=== PATIENT | male | born 1965 | race Two or more races ===

== ENCOUNTER 2025-02-01 22:27 | Emergency (ER) | payer MEDICAID, OTHER ==
[~2025-02-01] VITALS: Ht 172.7 cm; Wt 86.9 kg
[2025-02-02 01:05] VITALS: BP 139/92; PULSE 96; RESP 20; TEMP 97.6; O2SAT 97
[2025-02-02] MEDS: HYDROcodone-ACET 5/325MG TAB PO ONE (01:05)
[2025-02-02 03:10] LABS: Urine Protein, UAD 2+ (Negative)
--- NOTE | 2025-02-02 03:34 | ED.PDOC ---
General HPI Comments PT CAME TO THE ER WITH CC OF PENILE PAIN/ INFECTION. PT STATES THAT IT STARTED 18 MONTHS AGO WITH A BUMP ON THE PUBIC REGION WHICH KEPT GETTING BIGGER, NOW HE STATES THAT HIS PENIS IS INFECTED AND IT IS PAINFUL TO PEE. PT IS A&OX4 RR EVEN AND REGULAR NO DISTRESS NOTED AT THIS TIME. 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 02/02/25 Ciprofloxacin Hcl (Ciprofloxacin Hcl) 500 Mg Tab, 1 TAB PO BID for 7 Days, #14 TAB Prov:KAMTIAGO [facility] 02/02/25 Information Source: Patient Mode of Arrival: Ambulatory Past Medical History PAST MEDICAL HISTORY: Denies Surgical History: Denies all surgeries Family History Family History: Reviewed,noncontributory to illness Social History Smoker: Non-Smoker Alcohol: Denies ETOH Use Drugs: Denies Drug Use All Other Systems: Reviewed and Negative Physical Exam General Appearance: No Apparent Distress, Normal HEENT: Pharynx Normal Neck: Full Range of Motion, Non-Tender Respiratory: Lungs Clear, No Respiratory Distress, Normal Breath Sounds Cardiovascular: No Edema, No JVD, No Murmur, No Gallop, Normal Peripheral P ulses, Regular Rate/Rhythm Breast Exam: Deferred Gastrointestinal: No Organomegaly, Non Tender, No Pulsatile Mass, Normal Bowel Sounds, Soft Genitalia: Deferred Pelvic: Deferred Rectal: Deferred Extremities: No calf tenderness, Normal capillary refill, Normal range of motion Musculoskeletal : Apperance: Normal Neurologic: Alert, No Motor Deficits, Normal Affect, Normal Mood, No Sensory Deficits Cerebellar Function: Normal Reflexes: Normal, NOT DONE Skin: Dry, Normal Color, Warm Lymphatic: No Adenopathy Was a procedure done? Was a procedure done?: No Differential Diagnosis Kidney stone (Female): N/A Urinary Problem (Male): Epididymitis, Urethritis, Urinary Retention, UTI X-Ray, Labs, Meds, VS Vital Signs Date Time Temp Pulse Resp B/P (MAP) Pulse Ox O2 Delivery O2 Flow Rate FiO2 02/02/25 01:05 96 20 97 Room Air 02/02/25 01:05 97.6 96 20 139/92 (108) 97 97.6 02/01/25 22:29 97.5 92 18 147/111 97 97.5 Lab Test 02/02/25 00:58 Range/Units Urine Color Light-yellow Yellow Urine Clarity Clear Clear Urine pH 5.5 5.0-9.0 Urine Specific Abbott 1.016 1.001-1.035 Urine Protein 2+ H Negative Urine Ketones Negative Negative Urine Blood Negative Negative /uL Urine Nitrite Negative Negative Urine Bilirubin Negative Negative Urine Urobilinogen Normal Negative mg/dL Urine Leukocyte Esterase Negative Negative /uL Urine RBC <1 0 - 3 /hpf Urine Microscopic WBC 1 0-3 /HPF Urine Squamous Epithelial Cells None seen <5 /hpf Urine Bacteria None seen None Seen /hpf Urine Glucose Normal Normal mg/dL Current Medications Medications (Trade) Dose Ordered Sig/Jolynn Route Start Time Stop Time Status Last Admin Acetaminophen/ Hydrocodone Bitart ([place] 5/325MG Tab) 1 tab ONCE ONCE PO 02/02/25 01:00 02/02/25 01:01 DC 02/02/25 01:05 Time of 1ST Reevaluation: 22:40 Reevaluation 1ST: Unchanged Time of 2ND Reevaluation: 03:54 Reevaluation 2ND: Improved Patient Education/Counseling: Diagnosis, Treatment, Need For Follow Up Family Education/Counseling: No Family Present SEPSIS Sepsis Screen Date sepsis recognized/suspect: Feb 01, 2025 Time Sepsis recognized/suspect: 2233 Recent Procedure: No On Antibiotic Therapy: No Respiratory Rate >20: No Heart Rate >90: Yes Temp<36 C (96.8 F) or >38.3 C: No SBP <90 or MAP <65 mmHG: No New Acute Mental Status Change: No Is the patient on CPAP, BIPAP,: No Vital Signs Date Time Temp Pulse Resp B/P (MAP) Pulse Ox O2 Delivery O2 Flow Rate FiO2 02/02/25 01:05 96 20 97 Room Air 02/02/25 01:05 97.6 96 20 139/92 (108) 97 97.6 02/01/25 22:29 97.5 92 18 147/111 97 97.5 Medications Medications Dose Ordered Sig/Jolynn Route Start Time Stop Time Status Last Admin Dose Admin Acetaminophen/ Hydrocodone Bitart 1 tab ONCE ONCE PO 02/02/25 01:00 02/02/25 01:01 DC 02/02/25 01:05 Departure 1 Departure Time of Disposition: 03:34 Impression: Primary Impression: UTI (urinary tract infection) Qualified Codes: N30.00 - Acute cystitis without hematuria Disposition: 01 HOME / SELF CARE / HOMELESS Condition: Stable e-Prescriptions Ibuprofen (Ibuprofen) 800 Mg Tab 800 MG PO Q8HP PRN for 5 Days, #15 TAB Prov: TIAGO HUMPHREY 02/02/25 Ciprofloxacin Hcl (Ciprofloxacin Hcl) 500 Mg Tab 1 TAB PO BID for 7 Days, #14 TAB Prov: TIAGO HUMPHREY 02/02/25 Discharged With: Self Critical Care Note Critical Care Time?: No Stability Stability form required: No TIAGO HUMPHREY Feb 02, 2025 03:34
[2025-02-02] MEDS ORDERED: IBUP-1456 PO (03:53)
[2025-02-02] MEDS ORDERED: CIPR500T4 PO (03:53)
== END 2025-02-02 03:58 | disposition home or self-care (01) ==
LOC: ER 22:27
DX: N39.0 Urinary tract infection, site not specified (principal); Z79.899 Other long term (current) drug therapy
CPT/HCPCS: 81001

== ENCOUNTER 2025-02-21 17:03 | Inpatient (IN) | payer MEDICAID ==
[~2025-02-21] VITALS: Ht 170.2 cm; Wt 80.0 kg
--- NOTE | 2025-02-21 17:19 | ECG ---
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
--- NOTE | 2025-02-21 18:01 | ED.PDOC ---
GI ASSESSMENT HPI Comments This is a 59 year old male presenting to the ED with chief complaint of inguinal swelling/extremity edema. Patient reports that he has been dealing with a left sided inguinal hernia for the past 2 years, but has gone without treatment despite having increased pain and swelling to the region. Patient relays that he is now starting to experience SOB with associated leg swelling, facial swelling, and nausea. Patient notes he was treated for a UTI at [facility] 2 weeks ago and a week ago in [facility]. Patient denies any vomiting, diarrhea, dysuria, abdominal pain, chest pain, or flank pain. Chief Complaint: Extremity Swelling Time Seen by MD: 17:56 Reviewed Notes: Nurses Notes, Medications, Allergies Allergies: Coded Allergies: Ciprofloxacin (Verified Allergy, Unknown, 02/21/25) Information Source: Patient Mode of Arrival: Ambulatory Timing: Months Duration: Since onset Prehospital treatment: None Quality: Sharp Vomitus: None Stool: Normal Severity: Severe Recent: None Recent Hx of: None Past Medical History PAST MEDICAL HISTORY: UTI'S Past Medical History (Other): Left inguinal hernia Surgical History: Denies all surgeries Family History Family History: Reviewed,noncontributory to illness Social History Smoker: Non-Smoker Alcohol: Occasionally Drugs: Marijuana Lives In: Home Constitutional: denies: chills, diaphoresis, fatigue, fever, malaise, sweats, weakness, others EENTM: reports: others (Facial swelling); denies: blurred vision, double vision, ear bleeding, ear discharge, ear drainage, ear pain, ear ringing, eye pain, eye redness, hearing loss, mouth pain, mouth swelling, nasal discharge, nose bleeding, nose congestion, nose pain, photophobia, tearing, throat pain, throat swelling, voice changes Respiratory: reports: shortness of breath; denies: cough, hemoptysis, orthopnea, SOB at rest, SOB with excertion, stridor, wheezing, others Cardiovascular: reports: edema; denies: chest pain, dizzy spells, diaphoresis, Dyspnea on exertion, irregular heart beat, left arm pain, lightheadedness, palpitations, PND, syncope, others Gastrointestinal: reports: nausea; denies: abdomen distended, abdominal pain, blood streaked bowels, constipated, diarrhea, dysphagia, difficulty swallowing, hematemesis, melena, poor appetite, poor fluid intake, rectal bleeding, rectal pain, vomiting, others Genitourinary: reports: testicle swelling; denies: burning, dysuria, flank pain, frequency, hematuria, incontinence, penile discharge, penile sore, pain, testicle pain, urgency, others Neurological: denies: dizziness, fainting, headache, left sided numbness, left sided weakness, numbness, paresthesia, pre-existing deficit, right sided numbness, right sided weakness, seizure, speech problems, tingling, tremors, weakness, others Musculoskeletal: denies: back pain, gout, joint pain, joint swelling, muscle pain, muscle stiffness, neck pain, others Integumetry: denies: bruises, change in color, change in hair/nails, dryness, laceration, lesions, lumps, rash, wounds, others Allergic/Immunocompromised: denies: Difficulty Healing, Frequent Infections, Hives, Itching, others Hematologic/Lymphatic: denies: anemia, blood clots, easy bleeding, easy bruising, swollen glands, others Endocrine: denies: excessive hunger, excessive sweating, excessive thirst, excessive urination, flushing, intolerance to cold, intolerance to heat, unexplained weight gain, unexplained weight loss, others Psychiatric: denies: anxiety, bipolar disorder, depression, hopeless, panic disorder, schizophrenia, sleepless, suicidal, others All Other Systems: Reviewed and Negative Physical Exam General Appearance: Moderate Distress, Obese HEENT: Normal ENT Inspection, Pharynx Normal, TMs Normal Neck: Full Range of Motion, Non-Tender, Normal, Normal Inspection Respiratory: Chest Non-Tender, Lungs Clear, No Accessory Muscle Use, No Respiratory Distress, Normal Breath Sounds Cardiovascular: No Edema, No JVD, No Murmur, No Gallop, Normal Peripheral Pulses, Regular Rate/Rhythm Breast Exam: Deferred Gastrointestinal: Distended, No Pulsatile Mass, Normal Bowel Sounds, Tenderness Genitalia: Other (Significant scrotal swelling with some tenderness bilaterally) Pelvic: Deferred Rectal: Deferred Extremities: No calf tenderness, Normal capillary refill, No pedal edema Musculoskeletal : Apperance: Normal Neurologic: Alert, management intern II-XII nml as Tested, Motor Weakness, Normal Affect, Normal Mood, No Sensory Deficits Cerebellar Function: Normal Reflexes: Normal Skin: Dry, Normal Color, Warm Lymphatic: No Adenopathy EKG EKG : Pulse Rate (adult): 102 [place]: Normal Cardiac Rhythm: ST Block: RBBB Hypertrophy: LAE ST: Normal Was a procedure done? Was a procedure done?: No GI differential Dx Differential Diagnosis: Electrolyte Imbalance, Other (Intractable abdominal enrique n, incarcerated hernia, strangulated hernia is again works him) X-Ray, Labs, Meds, VS Vital Signs Date Time Temp Pulse Resp B/P (MAP) Pulse Ox O2 Delivery O2 Flow Rate FiO2 02/21/25 19:10 75 18 97 Room Air* 0 21 02/21/25 19:10 98.0 75 18 115/57 (76) 98 98.0 02/21/25 19:04 75 16 115/57 02/21/25 18:01 102 02/21/25 17:13 102 02/21/25 17:08 103 18 162/125 (137) 02/21/25 17:06 98.3 103 18 150/121 98 98.3 Lab Test 02/21/25 18:07 Range/Units White Blood Count 6.1 4.4-10.8 10^3/uL Red Blood Count 4.34 L 4.5-5.90 10^6/uL Hemoglobin 13.2 L 13.5-17.5 g/dL Hematocrit 40.5 L 41.0-53.0 % Mean Corpuscular Volume 93.4 80.0-100.0 fL Mean Corpuscular Hemoglobin 30.5 28.0-32.0 pg Mean Corpuscular Hemoglobin Concent 32.6 32.0-36.0 g/dL Red Cell Distribution Width 16.0 H 11.8-14.3 % Platelet Count 184 140-450 10^3/uL Mean Platelet Volume 9.3 6.9-10.8 fL Neutrophils (%) (Auto) 66.1 37.0-80.0 % Lymphocytes (%) (Auto) 17.5 10.0-50.0 % Monocytes (%) (Auto) 14.1 H 0.0-12.0 % Eosinophils (%) (Auto) 1.2 0.0-7.0 % Basophils (%) (Auto) 1.1 0.0-2.0 % Neutrophils # (Auto) 4.0 1.6-8.6 10 ^3/uL Lymphocytes # (Auto) 1.1 0.4-5.4 10 ^3/uL Monocytes # (Auto) 0.9 0-1.3 10 ^3/uL Eosinophils # (Auto) 0.1 0-0.8 10 ^3/uL Basophils # (Auto) 0.1 0-0.2 10 ^3/uL Nucleated Red Blood Cells 0.4 % Prothrombin Time 12.6 H 9.3-11.8 sec Prothrombin Time INR 1.21 H 0.9-1.15 Activated Partial Thromboplast Time 24.8 24.5-34.5 SEC Sodium Level 143 136-145 mmol/L Potassium Level 3.9 3.5-5.1 mmol/L Chloride Level 108 H 98-107 mmol/L Carbon Dioxide Level 25 20-31 mmol/L Anion Gap 10 5-15 Blood Urea Nitrogen 25 H 9-23 mg/dL Creatinine 1.37 H 0.700-1.30 mg/dL Glomerular Filtration Rate Calc 60 >90 mL/min BUN/Creatinine Ratio 18.2 10.0-20.0 Serum Glucose 82 74-106 mg/dL Lactic Acid Level 1.9 0.4-2.0 mmol/L Calcium Level 8.7 8.7-10.4 mg/dL Current Medications Medications (Trade) Dose Ordered Sig/Jolynn Route Start Time Stop Time Status Last Admin Ondansetron HCl (Zofran) 4 mg ONCE ONCE IV 02/21/25 18:00 02/21/25 18:01 DC 02/21/25 19:03 Hydromorphone HCl (Dilaudid Injection) 0.5 mg ONCE ONCE IV 02/21/25 18:00 02/21/25 18:01 DC 02/21/25 19:04 IV Hep-Lock was established The patient was given Dilaudid 0.5 mg IV push for pain The patient was given Zofran 4 mg IV push The patient's chemistry panel shows a BUN of 25 and a creatinine of 1.37 The patient is being signed out to Dr. Alfonso Time of 1ST Reevaluation: 20:01 Reevaluation 1ST: Unchanged Patient Education/Counseling: Diagnosis, Treatment, Prognosis Family Education/Counseling: No Family Present SEPSIS Sepsis Screen Date sepsis recognized/suspect: Feb 21, 2025 Time Sepsis recognized/suspect: 1706 Recent Procedure: No On Antibiotic Therapy: No Respiratory Rate >20: No Heart Rate >90: Yes Temp<36 C (96.8 F) or >38.3 C: No SBP <90 or MAP <65 mmHG: No New Acute Mental Status Change: No Is the patient on CPAP, BIPAP,: No Physician Orders Urinalysis (02/21/25 17:53) Ct Ab Pel With Iv Con Only (02/21/25 17:53) Heplock Iv (02/21/25 17:53) Blood Culture (02/21/25 17:53) Parimutuel Cashier (02/21/25 17:53) Blood Pressure (02/21/25 17:53) Pulse Oximetry (02/21/25 17:53) Iohexol (Omnipaque) (02/21/25 19:32) Vital Signs Date Time Temp Pulse Resp B/P (MAP) Pulse Ox O2 Delivery O2 Flow Rate FiO2 02/21/25 19:10 75 18 97 Room Air* 0 21 02/21/25 19:10 98.0 75 18 115/57 (76) 98 98.0 02/21/25 19:04 75 16 115/57 02/21/25 18:01 102 02/21/25 17:13 102 02/21/25 17:08 103 18 162/125 (137) 02/21/25 17:06 98.3 103 18 150/121 98 98.3 Laboratory Tests Test 02/21/25 18:07 Lactic Acid Level 1.9 mmol/L (0.4-2.0) White Blood Count 6.1 10^3/uL (4.4-10.8) Medications Medications Dose Ordered Sig/Jolynn Route Start Time Stop Time Status Last Admin Dose Admin Hydromorphone HCl 0.5 mg ONCE ONCE IV 02/21/25 18:00 02/21/25 18:01 DC 02/21/25 19:04 Ondansetron HCl 4 mg ONCE ONCE IV 02/21/25 18:00 02/21/25 18:01 DC 02/21/25 19:03 Departure 1 Departure Time of Disposition: 20:00 Impression: Primary Impression: Intractable abdominal pain Disposition: 30 STILL A PATIENT Condition: Fair Critical Care Note Critical Care Time?: No Stability Stability form required: No Heart Score Heart Score: Heart Score Response (Comments) Value History N/A 0 EKG N/A 0 Age N/A 0 Risk Factors N/A 0 Troponin N/A 0 Total 0 I personally scribed for TANYA,LUIS M B MD ([email or web address]) on 02/21/25 at 18:01. Electronically submitted by Thomas Cavazos ([email or web address]). LUIS M MARTÍNEZ MD Feb 21, 2025 18:01
[2025-02-21 18:44] LABS: Hematocrit 40.5 % (41.0-53.0); Hemoglobin 13.2 g/dL (13.5-17.5); Mean Corpuscular Hemoglobin 30.5 pg (28.0-32.0); Mean Corpuscular Volume 93.4 fL (80.0-100.0); Nucleated Red Blood Cells % 0.4 %
[2025-02-21 18:51] LABS: Potassium 3.9 mmol/L (3.5-5.1); Sodium 143 mmol/L (136-145)
[2025-02-21 18:52] LABS: Anion Gap 10 (5-15); Carbon Dioxide 25 mmol/L (20-31)
[2025-02-21 18:57] LABS: BUN/Creatinine Ratio 18.2 (10.0-20.0); Glucose 82 mg/dL (74-106); INR 1.21 (0.9-1.15); Partial Thromboplastin Time 24.8 SEC (24.5-34.5); Prothrombin Time 12.6 sec (9.3-11.8)
[2025-02-21 18:59] LABS: Blood Urea Nitrogen 25 mg/dL (9-23); Calcium 8.7 mg/dL (8.7-10.4); Chloride 108 mmol/L (98-107)
[2025-02-21] MEDS: ONDANSETRON HCL 4 MG/2 ML VIAL IV ONE (19:03)
[2025-02-21] MEDS: HYDROmorphone HCL 2 MG/ML VL/or syr IV ONE (19:04)
[2025-02-21 19:10] VITALS: PULSE 75; RESP 18; O2SAT 97
[2025-02-21] MEDS: IOHEXOL 300 MG/ML 100ML BOTTLE IJ ONE (19:32)
--- NOTE | 2025-02-21 20:57 | DVH ---
Exam: CT CT AB PEL WITH IV CON ONLY History: pain Comparison Study: None TECHNIQUE: Multidetector CT of the abdomen the pelvis with IV contrast. Axial, coronal and sagittal m ultiplanar reformats were obtained from the axial data set by the technologist. Radiation Dose Information: CT Dose: CTDI volume is 18.74 mGy. Dose-length product is 3.92 mGy*cm FINDINGS: Bibasilar atelectasis with trace right-sided pleural effusion. Heart size is within normal limits. S mall pericardial effusion. Small to moderate volume ascites. No evidence of intraperitoneal free air. Liver, spleen, gallbladder, pancreas and adrenal glands unremarkable. Kidneys and ureters unremarkable. Mild wall thickening of the Urinary bladder which is most likely f rom inadequate distention. Prostate is unremarkable. Mild wall thickening of the distal esophagus. Mild gastric wall thickening. Mild wall Thickening of proximal small bowel loops. The remainder of the small bowel loops unremarkable. Appendix is unremar kable. Small to moderate amount of fecal material within the colon. Large left inguinal hernia contai ronni the colon, ascitic fluid and fat with no evidence of obstruction. Small fat and ascitic fluid containing umbilical hernia. Moderate body wall edema. No evidence of acu te osseous abnormalities. Focus of metallic density adjacent to the left L5 lamina. Old left-sided po sterior rib fracture deformities. No evidence of acute osseous abnormalities. IMPRESSION: Small to moderate volume ascites. Moderate body wall edema. Mild wall thickening of the distal esophagus, stomach and proximal small bowel loops which may be due to inadequate distention with mild esophagitis and gastroenteritis not excluded. Large left inguinal hernia containing the colon, ascitic fluid and fat with no evidence of obstructio n.
[2025-02-21 23:36] LABS: Urine Protein, UAD 1+ (Negative)
--- NOTE | 2025-02-21 23:59 | DVHHPRES ---
History of Present Illness Resident Creating Document: PALMER NASH RESIDENT History of Present Illness Mr. Duncan is a 59 year old male with PMHX of Hypertension, heavy alcohol use, who presents today with chief complaint of inguinal swelling. The patient states he has had this hernia for the last 2 years, however presents today due to significant swelling and pain due to this hernia. He describes this pain as sharp, concentrated in testicular region, nonradiating, 8/10 intensity, without aggravating or relieving factors. He states he is still able to pass gas. Additionally refers bilateral lower extremity swelling since beginning to take ciprofloxacin, however he states it has improved. He denies nausea, vomiting, chest pain, diarrhea, shortness of breath, abdominal pain, fever, and palpitations. He states that although the hernia is always present, currently has been on a course of ciprofloxacin p.o. for a UTI, which has caused generalized swelling and worsening of the swelling in his testicles. Due to persistence of symptoms, the patient sought medical attention in the emergency department. On evaluation in the ED, the patient was afebrile, tachycardic, and hypertensive. Initial labs show normocytic anemia, creatinine 1.37, BUN 25, and UA without significant findings. Abdominal CT shows large left inguinal hernia containing the colon, ascitic fluid and fat without evidence of obstruction. The patient was placed on NPO, started on IV fluids and pain medication. He was admitted for further workup and management. Personal history: Inguinal hernia, hypertension Surgical history: Denies Allergies: Ciprofloxacin, causes face swelling Social: States he smokes 1 joint every day and has done so for 20 years, refers he drinks 1 six pack daily for last 4-5 years, denies tobacco use Review of Systems Review of Systems Constitutional: Denies weight loss, fever and chills. HEENT: Denies changes in vision and hearing. Respiratory: Denies shortness of breath and cough Cardiovascular: Denies chest discomfort or palpitations GI: Denies abdominal distention, abdominal pain, diarrhea : Scrotal swelling and pain, Denies dysuria and urinary frequency. Musculoskeletal: Refers bilateral lower extremity swelling Skin: Denies rash and pruritus. Neurological: denies dizziness headache vision or hearing problems Allergies: Coded Allergies: Ciprofloxacin (Verified Allergy, Unknown, 02/21/25) Exam Vital Signs Vital Signs Date Time Temp Pulse Resp B/P (MAP) Pulse Ox O2 Delivery O2 Flow Rate FiO2 02/21/25 23:12 98.0 94 16 153/120 (131) 97 98.0 02/21/25 19:10 Room Air* 0 21 Exam General: The patient alert and oriented in person place and time. Patient following commands HEENT: Normocephalic, atraumatic, normal reactive pupils, EOM intact, pink conjunctiva, pink moist mucous membrane Respiratory/pulmonary: Bilateral chest expansion, no pain on palpation of chest wall, clear lungs bilaterally, vesicular murmurs present in almost all lung santos, no associated crackles or wheezes. Cardiovascular: Normal RRR, normal S1 and S2, no murmurs Abdomen: Abdomen nondistended, normal bowel sounds, soft, there is no pain to palpation in any of the abdominal quadrants, no palpable masses. : Scrotum is observed to be enlarged, without changes in coloration, and hard to the touch, penis is horizontally deviated, hernia is nonreducible. Extremities: No deformities,Bilateral pitting edema +2 reaching up to lower calf, normal pulses Skin: No rashes or pruritus, there is no sacral edema present at this time. Neurological: Intact cranial nerves with no focal neurologic deficits Completed genital examination with airplane gastank liner assembler (Dr Mcnally) Labs/Xrays Labs Test 02/21/25 21:30 02/21/25 18:07 Range/Units Urine Color Yellow Yellow Urine Clarity Clear Clear Urine pH 5.5 5.0-9.0 Urine Specific [place] > 1.050 H 1.001-1.035 Urine Protein 1+ H Negative Urine Ketones Trace Negative Urine Blood Negative Negative /uL Urine Nitrite Negative Negative Urine Bilirubin Negative Negative Urine Urobilinogen Normal Negative mg/dL Urine Leukocyte Esterase Negative Negative /uL Urine RBC <1 0 - 3 /hpf Urine Microscopic WBC 1 0-3 /HPF Urine Squamous Epithelial Cells Few <5 /hpf Urine Bacteria None seen None Seen /hpf Urine Glucose Normal Normal mg/dL White Blood Count 6.1 4.4-10.8 10^3/uL Red Blood Count 4.34 L 4.5-5.90 10^6/uL Hemoglobin 13.2 L 13.5-17.5 g/dL Hematocrit 40.5 L 41.0-53.0 % Mean Corpuscular Volume 93.4 80.0-100.0 fL Mean Corpuscular Hemoglobin 30.5 28.0-32.0 pg Mean Corpuscular Hemoglobin Concent 32.6 32.0-36.0 g/dL Red Cell Distribution Width 16.0 H 11.8-14.3 % Platelet Count 184 140-450 10^3/uL Mean Platelet Volume 9.3 6.9-10.8 fL Neutrophils (%) (Auto) 66.1 37.0-80.0 % Lymphocytes (%) (Auto) 17.5 10.0-50.0 % Monocytes (%) (Auto) 14.1 H 0.0-12.0 % Eosinophils (%) (Auto) 1.2 0.0-7.0 % Basophils (%) (Auto) 1.1 0.0-2.0 % Neutrophils # (Auto) 4.0 1.6-8.6 10 ^3/uL Lymphocytes # (Auto) 1.1 0.4-5.4 10 ^3/uL Monocytes # (Auto) 0.9 0-1.3 10 ^3/uL Eosinophils # (Auto) 0.1 0-0.8 10 ^3/uL Basophils # (Auto) 0.1 0-0.2 10 ^3/uL Nucleated Red Blood Cells 0.4 % Prothrombin Time 12.6 H 9.3-11.8 sec Prothrombin Time INR 1.21 H 0.9-1.15 Activated Partial Thromboplast Time 24.8 24.5-34.5 SEC Sodium Level 143 136-145 mmol/L Potassium Level 3.9 3.5-5.1 mmol/L Chloride Level 108 H 98-107 mmol/L Carbon Dioxide Level 25 20-31 mmol/L Anion Gap 10 5-15 Blood Urea Nitrogen 25 H 9-23 mg/dL Creatinine 1.37 H 0.700-1.30 mg/dL Glomerular Filtration Rate Calc 60 >90 mL/min BUN/Creatinine Ratio 18.2 10.0-20.0 Serum Glucose 82 74-106 mg/dL Lactic Acid Level 1.9 0.4-2.0 mmol/L Calcium Level 8.7 8.7-10.4 mg/dL SEPSIS Sepsis Screen Date sepsis recognized/suspect: Feb 21, 2025 Time Sepsis recognized/suspect: 1706 Recent Procedure: No On Antibiotic Therapy: No Respiratory Rate >20: No Heart Rate >90: Yes Temp<36 C (96.8 F) or >38.3 C: No SBP <90 or MAP <65 mmHG: No New Acute Mental Status Change: No Is the patient on CPAP, BIPAP,: No Physician Orders Ct Ab Pel With Iv Con Only (02/21/25 17:53) Heplock Iv (02/21/25 17:53) Blood Culture (02/21/25 17:53) Bicycle Mechanic (02/21/25 17:53) Blood Pressure (02/21/25 17:53) Pulse Oximetry (02/21/25 17:53) Iohexol (Omnipaque) (02/21/25 19:32) Vital Signs Date Time Temp Pulse Resp B/P (MAP) Pulse Ox O2 Delivery O2 Flow Rate FiO2 02/21/25 23:12 98.0 94 16 153/120 (131) 97 98.0 02/21/25 19:10 75 18 97 Room Air* 0 21 02/21/25 19:10 98.0 75 18 115/57 (76) 98 98.0 02/21/25 19:04 75 16 115/57 02/21/25 18:01 102 02/21/25 17:13 102 02/21/25 17:08 103 18 162/125 (137) 02/21/25 17:06 98.3 103 18 150/121 98 98.3 Laboratory Tests Test 02/21/25 18:07 Lactic Acid Level 1.9 mmol/L (0.4-2.0) White Blood Count 6.1 10^3/uL (4.4-10.8) Medications Medications Dose Ordered Sig/Jolynn Route Start Time Stop Time Status Last Admin Dose Admin Hydromorphone HCl 0.5 mg ONCE ONCE IV 02/21/25 18:00 02/21/25 18:01 DC 02/21/25 19:04 0.5 MG Ondansetron HCl 4 mg ONCE ONCE IV 02/21/25 18:00 02/21/25 18:01 DC 02/21/25 19:03 4 MG Assessment/Plan Assessment/Plan Assessment and Plan: Incarcerated Left Inguinal Hernia - Abdominal CT: large left inguinal hernia containing the colon, ascitic fluid and fat with no evidence of obstruction -Testicular ultrasound: Left inguinal hernia containing fluid and a bowel loop - General surgery has been consulted - NPO, except for medications pending general surgery eval - Tramadol 50 mg PO q 6 hours - Dilaudid 0.5 mg IV once GIRISH likely due to VMN/hemodynamically mediated - Monitor renal function - Avoid nephrotoxic drugs Hypertensive urgency - Monitor BP - Adequate pain management - Patient states he does not take any medications for his blood pressure Ascites, rule out possible cirrhosis - Abdominal CT: Small to moderate volume ascites - Liver ultrasound pending - CMP pending - Indicated Furosemide 20 mg IV once DVT ruled out - B/L lower extremity venous duplex: no right or left femoral popliteal venous thrombosis - evaluate for possible cardiac causes bilateral swelling, pending echocardiog tristen Marijuana use - I have counseled the patient on the importance of complete marijuana cessation for over 13 minutes Heavy alcohol use Rule out alcohol withdrawal syndrome - I have counseled the patient on the importance of complete alcohol cessation f or over 12 minutes. - He states his last drink was 1 week ago Diet: NPO DVT prophylaxis: SCDs GI prophylaxis: Protonix 40 mg IV daily Case discussed with Dr. Maynard Goals of care discussed with the patient for over 30 minutes. Full Code. Plan discussed with: Patient, Other (Nurses) Date of Service: Feb 21, 2025 Billing Provider: CARMELLA MAYNARD MD Common Visit Codes: 18144-[id number] INP/OBS CARE (HIGH) Secondary Visit Codes: 25984-[id number] CARE PLAN 30 MINUTES PALMER NASH RESIDENT Feb 21, 2025 23:59 JORGE GONSALEZ RESIDENT Feb 22, 2025 05:38
[2025-02-22] MEDS ORDERED: ACETAMINOPHEN 325 MG TAB PO PRN
[2025-02-22] MEDS: ACETAMINOPHEN 325 MG TAB PO ONE (00:30)
[2025-02-22 00:46] LABS: Albumin 3.4 g/dL (3.2-4.8); Bilirubin, Total 1.1 mg/dL (0.2-1.0); Magnesium 1.9 mg/dL (1.6-2.6); Total Protein 5.8 g/dL (5.7-8.2)
[2025-02-22 00:53] LABS: Alanine Aminotransferase 65.0 U/L (7-40); Alkaline Phosphatase 174.0 U/L (46-116)
--- NOTE | 2025-02-22 01:11 | DVH ---
Bilateral lower extremity venous duplex Clinical History: R/o DVT Comparison: None Technique: Duplex Doppler evaluation of the deep venous systems of both lower extremities from the common femora l veins to the popliteal veins including color Doppler and spectral/pulsed waveform analysis was perf ormed. Findings: RIGHT SIDE: The common femoral vein demonstrates appropriate compressibility and waveform variability. There is compressibility/patency of the great saphenous vein at the proximal thigh. The femoral vein demonstrates appropriate compressibility and waveform variability. The deep femoral vein demonstrates appropriate compressibility and waveform variability. The popliteal vein demonstrates appropriate compressibility and waveform variability. There is normal compressibility at the tibioperoneal trunk. Enlarged right inguinal lymph node measures 3.0 cm. LEFT SIDE: The common femoral vein demonstrates appropriate compressibility and waveform variability. There is compressibility/patency of the great saphenous vein at the proximal thigh. The femoral vein demonstrates appropriate compressibility and waveform variability. The deep femoral vein demonstrates appropriate compressibility and waveform variability. The popliteal vein demonstrates appropriate compressibility and waveform variability. There is normal compressibility at the tibioperoneal trunk. Impression: 1. No right or left femoropopliteal venous thrombosis. 2. If clinical concern/symptoms persist or worsen, short-interval follow-up study is suggested. 3. Enlarged right inguinal lymph node measures 3.0 cm.
--- NOTE | 2025-02-22 01:59 | DVH ---
ULTRASOUND OF SCROTUM AND CONTENTS. INDICATION: Inguinal hernia COMPARISON: None TECHNIQUE: Multiple real-time grayscale sonographic and color and duplex Doppler images of the scrotu m and its contents were obtained. FINDINGS: The right testicle measures 3.0 x 2.4 x 2.9 cm. The left testicle measures 3.5 x 2.4 x 2.9 cm. Both testicles demonstrate homogeneous echotexture without evidence of focal lesions. Right and left epididymis appears normal. Subsequent color and duplex Doppler interrogation of the testes demonstrated symmetric normal vascula r flow to both testicles. No focal areas of hyperemia were seen. Small bilateral hydroceles. Left inguinal hernia containing fluid and likely a bowel loop. This was better assessed on recent CT. IMPRESSION: Left inguinal hernia containing fluid and a bowel loop.
[2025-02-22 02:19] LABS: Bilirubin, Direct 0.4 mg/dL (<0.3)
[2025-02-22] MEDS: LISINOPRIL 20 MG TAB PO ONE (03:12)
[2025-02-22] MEDS: PANTOPRAZOLE 40 MG/10 ML VIAL INJ IV ONE (06:01)
[2025-02-22] MEDS: FUROSEMIDE 20 MG/2 ML VIAL IV ONE (06:02)
[2025-02-22 06:03] LABS: Hematocrit 40.2 % (41.0-53.0); Hemoglobin 13.0 g/dL (13.5-17.5); Mean Corpuscular Hemoglobin 30.5 pg (28.0-32.0); Mean Corpuscular Volume 94.2 fL (80.0-100.0); Nucleated Red Blood Cells % 0.6 %
[2025-02-22 06:22] LABS: Albumin 3.5 g/dL (3.2-4.8); Anion Gap 10 (5-15); BUN/Creatinine Ratio 12.2 (10.0-20.0); Blood Urea Nitrogen 18 mg/dL (9-23); Carbon Dioxide 25 mmol/L (20-31); Glucose 88 mg/dL (74-106); Potassium 4.2 mmol/L (3.5-5.1); Sodium 142 mmol/L (136-145); Total Protein 5.9 g/dL (5.7-8.2)
[2025-02-22 06:24] LABS: Alanine Aminotransferase 59 U/L (7-40); Alkaline Phosphatase 142 U/L (46-116); Bilirubin, Total 1.3 mg/dL (0.2-1.0); Calcium 8.7 mg/dL (8.7-10.4); Chloride 107 mmol/L (98-107)
[2025-02-22 07:17] VITALS: BP 120/71; PULSE 96; O2SAT 95
[2025-02-22 08:50] LABS: Cannabinoid Screen, Urine Neg (NEGATIVE); Opiate Scree,Urine Neg (NEGATIVE)
[2025-02-22 08:51] LABS: Barbiturate Scree,Urine Neg (NEGATIVE)
[2025-02-22 08:52] LABS: Amphetamine Screen, Urine Pos (NEGATIVE); Benzodiazephine Screen, Urine Neg (NEGATIVE); Cocaine Screen, Urine Neg (NEGATIVE); Phencyclidine Screen, Urine Neg (NEGATIVE)
--- NOTE | 2025-02-22 08:57 | DVH ---
CLINICAL INFORMATION: Elevated liver function tests. TECHNIQUE: Grayscale sonographic imaging of the right upper quadrant of the abdomen was performed, a ssisted by color Doppler techniques. COMPARISON: None FINDINGS: The gallbladder wall measures 5 mm in thickness, abnormally thickened. No stones are see n.Negative reported sonographic Aguirre's sign. The common bile duct is not visualized. Heterogeneous echogenicity of the liver. Liver measures 16.7 cm in craniocaudal dimension, at the upp er limits of normal. The pancreas is obscured by bowel gas. There is ascites. Main portal vein is patent with normal hepat opetal flow demonstrated. The right kidney measures 10.2 cm. There is no hydronephrosis. Right renal cortical echogenicity a nd cortical thickness are within normal limits. IMPRESSION: 1. Gallbladder wall thickening with no gallstones visualized and negative reported sonographic aguirre 's sign. Gallbladder wall thickening may be due to 3rd spacing of fluid in the setting of ascites rat her than acute cholecystitis. Correlate with clinical findings. 2. Heterogeneous echogenicity of the liver with at least small volume ascites. 3. Pancreas and common bile duct were not able to be visualized due to bowel gas.
[2025-02-22 09:00] VITALS: BP 147/110; PULSE 112; RESP 18; TEMP 97.7; O2SAT 97
[2025-02-22] MEDS: PANTOPRAZOLE 40 MG/10 ML VIAL INJ IV SCH (09:40)
[2025-02-22 09:55] LABS: Hepatitis B Surface Antigen Negative (Negative)
[2025-02-22] MEDS: SODIUM CHLORIDE 0.9% 1,000 ML IV SCH (10:01)
[2025-02-22 10:17] LABS: Hepatitis C Antibody Negative (Negative)
--- NOTE | 2025-02-22 10:37 | DVH ---
EXAM: XY CHEST PORTABLE Indication: sob Technique: Single frontal view of the chest was obtained Comparison: None FINDINGS: Lines and Tubes: None Lungs: No focal consolidation. Pleura: No effusion. No pneumothorax. Cardiomediastinal contours: Cardiomegaly. Bones: No acute osseous abnormality. IMPRESSION: No acute cardiopulmonary disease. Cardiomegaly.
[2025-02-22 13:00] VITALS: BP 148/108; PULSE 99; RESP 24; TEMP 97.4; O2SAT 100
[2025-02-22] MEDS ORDERED: HYDROcodone-ACET 5/325MG TAB PO PRN (14:30)
--- NOTE | 2025-02-22 15:39 | DVHPNRES ---
Progress Note Date Seen: Feb 22, 2025 Resident Creating Document: HELLEN FRAZIER RESIDENT Has the PT tested + for MRSA If YES, has PT been informed?: No Medical Necessity Reason Pt with a Central, PICC or Fol: No Subjective Review of Systems Mr. Duncan is a 59 year old male with PMHX of Hypertension, heavy alcohol use, who presents today with chief complaint of left inguinal swelling. Patient reports that he has had this hernia for the past 2 years and had gone to his primary care physician but nothing was done. Patient states that the past 5-6 months the hernia has increased in size and has not been reducible as before. He reports that he has been in pain for a while now but in the last couple of days the pain has increased And yesterday had 3 episodes of vomiting without any blood, which was watery and nausea as well as shortness of breath that increased on lying down. He describes the pain as sharp, concentrated in the testicular region, nonradiating, 8/10 intensity, without aggravating or relieving factors. patient also reports that he had a UTI a few months ago and was given ciprofloxacin for to which he had an allergic reaction he had swelling of his face, body and of his legs. The leg swelling has been there for the past 3 weeks and has not gone away. States that the swelling in his testicles have worsened since then. Personal history: Inguinal hernia, hypertension( reports does not take any blood pressure medication) Surgical history: none family history: Mother and sister have diabetes mellitus type 2 Social: patient lives at home with his sister. States he smokes 1 joint every day and has done so for 20 years, refers he drinks beer- 6-12 pack daily for last 5 years, last drink was 1 week ago, denies tobacco use Allergies: Ciprofloxacin causes generalized body swelling especially in the face and legs home medications: None ROS: 02/22/2025 patient was seen and examined by me at the bedside. Patient reports that he still has pain in his testicular region. He rates the pain as 6/10. We are awaiting on echocardiogram, surgery consult pending. Objective vital signs Vital Sign Date Time Temp Pulse Resp B/P (MAP) Pulse Ox O2 Delivery O2 Flow Rate FiO2 02/22/25 09:00 97.7 112 18 147/110 (122) 97 97.7 02/21/25 19:10 Room Air* 0 21 medications Current Medications Medications Dose Ordered Sig/Jolynn Route Start Time Stop Time Status Last Admin Dose Admin Sodium Chloride 1,000 ml @ 50 mls/hr Q20H IV 02/22/25 00:00 02/22/25 10:01 50 MLS/HR Pantoprazole Sodium 40 mg DAILY IV 02/22/25 10:00 Acetaminophen 325 mg Q4HP PRN PO 02/22/25 00:00 Tramadol HCl 50 mg Q6HP PRN PO 02/22/25 00:30 02/22/25 08:48 50 MG Acetaminophen/ Hydrocodone Bitart 1 tab Q4HPRN PRN PO 02/22/25 14:30 Hydromorphone HCl 0.25 mg Q6HPRN PRN IV 02/22/25 14:30 Ceftriaxone Sodium 50 ml @ 100 mls/hr DAILY@09 IV 02/22/25 14:30 Metronidazole 100 ml @ 100 mls/hr Q8HR IV 02/22/25 14:30 Examination General: The patient alert and oriented in person place and time. Patient following commands HEENT: Normocephalic, atraumatic, normal reactive pupils, EOM intact, pink conjunctiva, pink moist mucous membrane Respiratory/pulmonary: Bilateral chest expansion, no pain on palpation of chest wall, clear lungs bilaterally, vesicular murmurs present in almost all lung santos, no associated crackles or wheezes. Cardiovascular: Normal RRR, normal S1 and S2, no murmurs Abdomen: Abdomen mildly distended, normal bowel sounds, soft, there is no pain to palpation in any of the abdominal quadrants, no palpable masses, presence of right umbilical hernia : Scrotum is observed to be enlarged, without changes in coloration, and hard to the touch, penis is horizontally deviated, hernia is nonreducible. Extremities: No deformities, Bilateral pitting edema +2 reaching up to lower calf, normal pulses Skin: No rashes or pruritus, there is no sacral edema present at this time, p resence of scabs in bilateral knees due to fall. Neurological: Intact cranial nerves with no focal neurologic deficits laboratory and microbiology Laboratory Tests 02/22/25 05:00 Test 02/22/25 05:00 Range/Units Serum Glucose 88 74-106 mg/dL Labs and/or images reviewed: Labs reviewed by me, Image(s) reviewed by me Problem List/Assessment/Plan Problem List/Assessment/Plan Incarcerated Left Inguinal Hernia - Abdominal CT: large left inguinal hernia containing the colon, ascitic fluid and fat with no evidence of obstruction -Testicular ultrasound: Left inguinal hernia containing fluid and a bowel loop - General surgery has been consulted, pending - NPO, except for medications pending general surgery eval - Tramadol 50 mg PO q 6 hours - Dilaudid 0.5 mg q.6 PRN - [place] 10/325 q.4 - echo, pending GIRISH likely due to VMN/hemodynamically mediated - Monitor renal function - Avoid nephrotoxic drugs - NaCl 0.9% 50 mL/hour Q20H IV Hypertensive urgency - Monitor BP - Adequate pain management- tramadol 50 mg q.6 H PRN for severe pain - Patient states he does not take any medications for his blood pressure Ascites, rule out possible cirrhosis - Abdominal CT: Small to moderate volume ascites - Liver ultrasound shows: Gallbladder wall thickening with no gallstones visualized and negative reported sonographic dhaliwal's sign. Gallbladder wall thickening may be due to 3rd spacing of fluid in the setting of ascites rather than acute cholecystitis; Heterogeneous echogenicity of the liver with at least small volume ascites. -Furosemide 20 mg IV once DVT ruled out - B/L lower extremity venous duplex: no right or left femoral popliteal venous thrombosis - evaluate for possible cardiac causes bilateral swelling, pending echocardiogram Marijuana use Heavy alcohol use To monitor for alcohol withdrawal syndrome - patient counseled regarding cessation marijuana and alcohol for 22 minutes of alcohol and the possibility of it causing the ascites to increase if he continues to drink alcohol - He states his last drink was 1 week ago Diet: NPO DVT prophylaxis: SCDs GI prophylaxis: Protonix 40 mg IV daily Goals of care discussed with the patient for 20 minutes: Full code status Case discussed with Dr. Christiansen, patient and nurse. Plan discussed with: Patient, Other (rn) Date of Service: Feb 22, 2025 Billing Provider: MAUDE CHRISTIANSEN MD Common Visit Codes: 82108-[id number] INP/OBS CARE(HIGH) Secondary Visit Codes: [id number] CHNG SMOKING >10MIN (22 minutes for alcohol and marijuana use cessation), [id number] CARE PLAN 30 MINUTES (20 minutes) Addendum Addendum Addendum I was physically present for the chavez portions of the service provided to patient by THE RESIDENT. I have reviewed the documentation, discussed the case with resident and agree with the resident's documentation except as noted. Also the patient's clinical case was discussed with the patient's nurse. This medical document was created using an electronic medical record system with computerized dictation system. Although this document has been carefully reviewed, there might still be some phonetic and typographical errors. These areas are purely typographical due to imperfections of the software programs, and do not reflect any compromise in the patient's medical care. Late signature. HELLEN FRAZIER RESIDENT Feb 22, 2025 15:39 MAUDE CHRISTIANSEN MD Feb 25, 2025 10:06
[2025-02-22 17:00] VITALS: BP 113/68; PULSE 68; RESP 20; TEMP 97.5; O2SAT 92
[2025-02-22 20:56] VITALS: BP 121/89; PULSE 82; RESP 20; TEMP 97.3; O2SAT 95
[2025-02-22] MEDS: HYDROmorphone HCL 2 MG/ML VL/or syr IV PRN (21:46)
[2025-02-22 22:21] VITALS: BP 127/102; PULSE 82; RESP 18; TEMP 98.3; O2SAT 97
[2025-02-23 01:06] VITALS: BP 136/100; PULSE 75; RESP 18; TEMP 97.2; O2SAT 97
[2025-02-23 04:48] VITALS: BP 126/106; PULSE 90; RESP 19; TEMP 98.3; O2SAT 97
[2025-02-23 06:49] LABS: Hematocrit 37.9 % (41.0-53.0); Hemoglobin 12.5 g/dL (13.5-17.5); Mean Corpuscular Hemoglobin 30.6 pg (28.0-32.0); Mean Corpuscular Volume 92.8 fL (80.0-100.0); Nucleated Red Blood Cells % 0.3 %
[2025-02-23 06:58] LABS: Anion Gap 10 (5-15); Carbon Dioxide 26 mmol/L (20-31); Potassium 3.9 mmol/L (3.5-5.1); Sodium 144 mmol/L (136-145)
[2025-02-23 07:04] LABS: BUN/Creatinine Ratio 10.6 (10.0-20.0); Blood Urea Nitrogen 15 mg/dL (9-23)
[2025-02-23 07:26] LABS: Calcium 8.1 mg/dL (8.7-10.4); Chloride 108 mmol/L (98-107); Glucose 71 mg/dL (74-106)
[2025-02-23 09:00] VITALS: BP 122/94; PULSE 87; RESP 18; TEMP 98.4; O2SAT 95
--- NOTE | 2025-02-23 10:31 | DVHINCON2 ---
Date of service: Feb 23, 2025 Family History: Diabetes mellitus G8 MOTHER Allergies: Coded Allergies: Ciprofloxacin (Verified Allergy, Unknown, 02/21/25) Home Meds No Active Prescriptions or Reported Meds Current Medications Current Medications Medications (Trade) Dose Ordered Sig/Jolynn Route PRN Reason Start Time Stop Time Status Last Admin Acetaminophen/ Hydrocodone Bitart (Elizabeth 5/325MG Tab) 1 tab Q4HPRN PRN PO MILD PAIN (1-3 PAIN SCALE) 02/22/25 14:30 Hydromorphone HCl (Dilaudid Injection) 0.25 mg Q6HPRN PRN IV MODERATE PAIN (4-6 PAIN SCALE) 02/22/25 14:30 02/23/25 05:57 Ceftriaxone Sodium 50 ml @ 100 mls/hr DAILY@09 IV 02/22/25 14:30 02/23/25 09:26 Metronidazole 100 ml @ 100 mls/hr Q8HR IV 02/22/25 14:30 02/23/25 05:43 Vital Signs Vital Signs Date Time Temp Pulse Resp B/P (MAP) Pulse Ox O2 Delivery O2 Flow Rate FiO2 02/23/25 09:00 98.4 87 18 122/94 (103) 95 98.4 02/23/25 08:00 Room Air* 0 21 Labs/Diagnostic Data Labs Test 02/23/25 05:10 02/22/25 21:30 02/22/25 18:07 02/22/25 05:00 Range/Units White Blood Count 5.0 4.4-10.8 10^3/uL Red Blood Count 4.09 L 4.5-5.90 10^6/uL Hemoglobin 12.5 L 13.5-17.5 g/dL Hematocrit 37.9 L 41.0-53.0 % Mean Corpuscular Volume 92.8 80.0-100.0 fL Mean Corpuscular Hemoglobin 30.6 28.0-32.0 pg Mean Corpuscular Hemoglobin Concent 33.0 32.0-36.0 g/dL Red Cell Distribution Width 16.0 H 11.8-14.3 % Platelet Count 171 140-450 10^3/uL Mean Platelet Volume 9.2 6.9-10.8 fL Neutrophils (%) (Auto) 51.8 37.0-80.0 % Lymphocytes (%) (Auto) 29.8 10.0-50.0 % Monocytes (%) (Auto) 15.8 H 0.0-12.0 % Eosinophils (%) (Auto) 1.7 0.0-7.0 % Basophils (%) (Auto) 0.9 0.0-2.0 % Neutrophils # (Auto) 2.6 1.6-8.6 10 ^3/uL Lymphocytes # (Auto) 1.5 0.4-5.4 10 ^3/uL Monocytes # (Auto) 0.8 0-1.3 10 ^3/uL Eosinophils # (Auto) 0.1 0-0.8 10 ^3/uL Basophils # (Auto) 0 0-0.2 10 ^3/uL Nucleated Red Blood Cells 0.3 % Sodium Level 144 136-145 mmol/L Potassium Level 3.9 3.5-5.1 mmol/L Chloride Level 108 H 98-107 mmol/L Carbon Dioxide Level 26 20-31 mmol/L Anion Gap 10 5-15 Blood Urea Nitrogen 15 9-23 mg/dL Creatinine 1.42 H 0.700-1.30 mg/dL Glomerular Filtration Rate Calc 58 >90 mL/min BUN/Creatinine Ratio 10.6 10.0-20.0 Serum Glucose 71 L 74-106 mg/dL Calcium Level 8.1 L 8.7-10.4 mg/dL Urine Opiates Screen Neg NEGATIVE Urine Fentanyl Screen Neg NEGATIVE Urine Barbiturates Screen Neg NEGATIVE Urine Phencyclidine Screen Neg NEGATIVE Urine Amphetamines Screen Pos NEGATIVE Urine Benzodiazepines Screen Neg NEGATIVE Urine Cocaine Screen Neg NEGATIVE Urine Cannabinoids Screen Neg NEGATIVE Hemoglobin A1c 6.1 H <5.7 % A1C Phosphorus Level 4.0 2.4-5.1 mg/dL Magnesium Level 1.9 1.6-2.6 mg/dL Total Bilirubin 1.1 H 0.2-1.0 mg/dL Direct Bilirubin 0.4 H <0.3 mg/dL Aspartate Amino Transferase (AST) 58 H 13-40 U/L Alanine Aminotransferase (ALT) 65 H 7-40 U/L Alkaline Phosphatase 174 H 46-116 U/L B-Type Natriuretic Peptide 1183.75 0-100 pg/mL Total Protein 5.8 5.7-8.2 g/dL Albumin 3.4 3.2-4.8 g/dL Vitamin B12 Level 695 211-911 pg/mL Vitamin D 25-Hydroxy 41.1 30.0-100 ng/mL Thyroid Stimulating Hormone (TSH) 10.43 H 0.55-4.78 uIU/mL Plasma/Serum Blood Alcohol < 3.0 <10 mg/dL Hepatitis A IgM Antibody Negative Hepatitis B Surface Antigen Negative Negative Hepatitis B Core IgM Antibody Negative Negative Hepatitis C Antibody Negative Negative Test 02/21/25 21:30 02/21/25 18:07 Range/Units Urine Color Yellow Yellow Urine Clarity Clear Clear Urine pH 5.5 5.0-9.0 Urine Specific [place] > 1.050 H 1.001-1.035 Urine Protein 1+ H Negative Urine Ketones Trace Negative Urine Blood Negative Negative /uL Urine Nitrite Negative Negative Urine Bilirubin Negative Negative Urine Urobilinogen Normal Negative mg/dL Urine Leukocyte Esterase Negative Negative /uL Urine RBC <1 0 - 3 /hpf Urine Microscopic WBC 1 0-3 /HPF Urine Squamous Epithelial Cells Few <5 /hpf Urine Bacteria None seen None Seen /hpf Urine Glucose Normal Normal mg/dL Prothrombin Time 12.6 H 9.3-11.8 sec Prothrombin Time INR 1.21 H 0.9-1.15 Activated Partial Thromboplast Time 24.8 24.5-34.5 SEC Lactic Acid Level 1.9 0.4-2.0 mmol/L Microbiology Date/Time Source Procedure Growth Status 02/21/25 18:07 Blood Blood Culture - Preliminary NO GROWTH AFTER 24 HOURS OF INCUBATION. Resulted Assessment 59 YEAR OLD MALE WITH LEFT INGUINAL HERNIA CONTAINING A LOOP OF BOWEL AND ASCITIC FLUID, ABDOMEN WITH ASCITES, PATIENT ADMITS TO HEAVY ALCOHOL USE, ELEVATED LFT'S. INGUINAL HERNIA IS NOT REDUCIBLE (DUE TO ASCITES) HOWEVER NON TENDER, CT SCAN SHOWS NO EVIDENCE OF INCARCERATION, THIS HERNIA HAS BEEN PRESENT FOR MANY YEARS AND DOES NOT REQUIRE EMERGENCY REPAIR, ADVISED PATIENT TO STOP DRINKING ALCOHOL, HERNIA CAN BE REPAIRED ELECTIVELY Plan discussed with: Patient RUY COOPER MD Feb 23, 2025 10:31
--- NOTE | 2025-02-23 12:11 | DVHPNRES ---
Progress Note Date Seen: Feb 23, 2025 Resident Creating Document: HELLEN FRAZIER RESIDENT Has the PT tested + for MRSA If YES, has PT been informed?: No Medical Necessity Reason Pt with a Central, PICC or Fol: No Subjective Review of Systems Mr. Duncan is a 59 year old male with PMHX of Hypertension, heavy alcohol use, who presents today with chief complaint of left inguinal swelling. Patient reports that he has had this hernia for the past 2 years and had gone to his primary care physician but nothing was done. Patient states that the past 5-6 months the hernia has increased in size and has not been reducible as before. He reports that he has been in pain for a while now but in the last couple of days the pain has increased And yesterday had 3 episodes of vomiting without any blood, which was watery and nausea as well as shortness of breath that increased on lying down. He describes the pain as sharp, concentrated in the testicular region, nonradiating, 8/10 intensity, without aggravating or relieving factors. patient also reports that he had a UTI a few months ago and was given ciprofloxacin for to which he had an allergic reaction he had swelling of his face, body and of his legs. The leg swelling has been there for the past 3 weeks and has not gone away. States that the swelling in his testicles have worsened since then. Personal history: Inguinal hernia, hypertension( reports does not take any blood pressure medication) Surgical history: none family history: Mother and sister have diabetes mellitus type 2 Social: patient lives at home with his sister. States he smokes 1 joint every day and has done so for 20 years, refers he drinks beer- 6-12 pack daily for last 5 years, last drink was 1 week ago, denies tobacco use Allergies: Ciprofloxacin causes generalized body swelling especially in the face and legs home medications: None ROS: 02/22/2025 patient was seen and examined by me at the bedside. Patient reports that he still has pain in his testicular region. He rates the pain as 6/10. We are awaiting on echocardiogram and cardiac clearance before surgery can be done. Surgery on board 02/23/2025: Patient was seen and examined by me at the bedside today. Patient reports that the pain in his scrotal area is 10/10 in intensity. Surgery consult was done who suggested the patient's hernia has been there for a while now and suggested outpatient elective surgery and cessation of alcohol. We are keeping the patient today since he is in a lot of pain and we have consulted high school social science teacher for DME for scrotal Hold which might help the patient's pain. Since surgery is not going to be done we are placing a regular diet. Objective vital signs Vital Sign Date Time Temp Pulse Resp B/P (MAP) Pulse Ox O2 Delivery O2 Flow Rate FiO2 02/23/25 09:00 98.4 87 18 122/94 (103) 95 98.4 02/23/25 08:00 Room Air* 0 21 Total Intake and Output 02/22/25 02/22/25 02/23/25 15:00 23:00 07:00 Intake Total 200 ml Balance 200 ml medications Current Medications Medications Dose Ordered Sig/Jolynn Route Start Time Stop Time Status Last Admin Dose Admin Sodium Chloride 1,000 ml @ 50 mls/hr Q20H IV 02/22/25 00:00 02/22/25 10:01 50 MLS/HR Pantoprazole Sodium 40 mg DAILY IV 02/22/25 10:00 02/23/25 09:26 40 MG Acetaminophen 325 mg Q4HP PRN PO 02/22/25 00:00 Tramadol HCl 50 mg Q6HP PRN PO 02/22/25 00:30 02/22/25 16:08 50 MG Acetaminophen/ Hydrocodone Bitart 1 tab Q4HPRN PRN PO 02/22/25 14:30 Hydromorphone HCl 0.25 mg Q6HPRN PRN IV 02/22/25 14:30 02/23/25 05:57 0.25 MG Ceftriaxone Sodium 50 ml @ 100 mls/hr DAILY@09 IV 02/22/25 14:30 02/23/25 09:26 100 MLS/HR Metronidazole 100 ml @ 100 mls/hr Q8HR IV 02/22/25 14:30 02/23/25 05:43 100 MLS/HR Examination General: The patient alert and oriented in person place and time. Patient following commands HEENT: Normocephalic, atraumatic, normal reactive pupils, EOM intact, pink conjunctiva, pink moist mucous membrane Respiratory/pulmonary: Bilateral chest expansion, no pain on palpation of chest wall, clear lungs bilaterally, vesicular murmurs present in almost all lung santos, no associated crackles or wheezes. Cardiovascular: Normal RRR, normal S1 and S2, no murmurs Abdomen: Abdomen mildly distended, normal bowel sounds, soft, no palpable masses, presence of right umbilical hernia, pain on palpation in suprapubic region : Scrotum is observed to be tender enlarged, without changes in coloration, and hard and tender to the touch, penis is horizontally deviated, hernia is nonreducible, Extremities: No deformities, Bilateral pitting edema +2 reaching up to lower calf, normal pulses Skin: No rashes or pruritus, there is no sacral edema present at this time, p resence of scabs in bilateral knees due to fall. Neurological: Intact cranial nerves with no focal neurologic deficits laboratory and microbiology Laboratory Tests 02/23/25 05:10 Test 02/23/25 05:10 Range/Units Serum Glucose 71 L 74-106 mg/dL Microbiology Date/Time Source Procedure Growth Status 02/21/25 18:07 Blood Blood Culture - Preliminary NO GROWTH AFTER 24 HOURS OF INCUBATION. Resulted Labs and/or images reviewed: Labs reviewed by me, Image(s) reviewed by me Problem List/Assessment/Plan Problem List/Assessment/Plan Incarcerated Left Inguinal Hernia - Abdominal CT: large left inguinal hernia containing the colon, ascitic fluid and fat with no evidence of obstruction -Testicular ultrasound: Left inguinal hernia containing fluid and a bowel loop - Tramadol 50 mg PO q 6 hours - Dilaudid 0.5 mg q.6 PRN - [place] 10/325 q.4 - General surgery has been consulted, they have suggested that the patient can have outpatient elective surgery and cessation of alcohol - manager social work consult done for DME for scrotal Hold to relieve patient's pain GIRISH likely due to VMN/hemodynamically mediated - Monitor renal function - Avoid nephrotoxic drugs - NaCl 0.9% 50 mL/hour Q20H IV Hypertensive urgency - Monitor BP - Adequate pain management- tramadol 50 mg q.6 H PRN for severe pain - Patient states he does not take any medications for his blood pressure Ascites, rule out possible cirrhosis - Abdominal CT: Small to moderate volume ascites - Liver ultrasound shows: Gallbladder wall thickening with no gallstones visualized and negative reported sonographic dhaliwal's sign. Gallbladder wall thickening may be due to 3rd spacing of fluid in the setting of ascites rather than acute cholecystitis; Heterogeneous echogenicity of the liver with at least small volume ascites. -Furosemide 20 mg IV once DVT ruled out - B/L lower extremity venous duplex: no right or left femoral popliteal venous thrombosis - evaluate for possible cardiac causes bilateral swelling, pending echocardiogram Marijuana use Heavy alcohol use Rule out alcohol withdrawal syndrome - patient counseled regarding cessation and the possibility of it causing the ascites to increase - He states his last drink was 1 week ago Diet: Regular diet DVT prophylaxis: SCDs GI prophylaxis: Protonix 40 mg IV daily Goals of care: Full code status Case discussed with Dr. Christiansen, patient and nurse. Plan discussed with: Patient, Other (Lower) My Orders My Orders Orders - HELLEN FRAZIER Procedure Category Date Status Time * Cardiology Consult CONS 02/23/25 Transmitted 10:12 * Fish Roe Technician CONS 02/23/25 Transmitted Consult Date of Service: Feb 23, 2025 Billing Provider: MAUDE CHRISTIANSEN MD Common Visit Codes: [id number] INP/OBS CARE(HIGH) Addendum Addendum Addendum I was physically present for the chavez portions of the service provided to patient by THE RESIDENT. I have reviewed the documentation, discussed the case with resident and agree with the resident's documentation except as noted. Also the patient's clinical case was discussed with the patient's nurse. This medical document was created using an electronic medical record system with computerized dictation system. Although this document has been carefully reviewed, there might still be some phonetic and typographical errors. These areas are purely typographical due to imperfections of the software programs, and do not reflect any compromise in the patient's medical care. Late signature. HELLEN FRAZIER RESIDENT Feb 23, 2025 12:11 MAUDE CHRISTIANSEN MD Feb 25, 2025 10:40
[2025-02-23 17:00] VITALS: BP 133/104; PULSE 101; RESP 18; TEMP 98.4; O2SAT 100
--- NOTE | 2025-02-23 17:04 | DVHSR ---
APPROVED REPORT EXAM: Two-dimensional and M-mode echocardiogram with Doppler and color Doppler. Blood Pressure: 125/77 mmHg INDICATION Eval EF RISK FACTORS Height: 5' 7", Weight: 176 DIMENSIONS LVDd5.6 (3.8-5.7cm)LA (2D)5.2 (1.9-4.0cm)Aortic Root3.4 (2.0-3.7cm) LVDs5.1 (2.5-4.0cm)LA (MM) (1.9-4.0cm)Aortic Cusp Exc2.0 (1.5-2.0cm) EF (%) 20.0 (55-70%)Rt. Atrium5.8 (1.9-4.0cm)Asc. Aorta cm IVSd1.3 (0.7-1.1cm)RV (D) (1.8-2.4cm) PWd1.3 (0.7-1.1cm) Mitral Valve MitralMitral Stenosis E wave0.80m/sMV Mean GR.mmHg A wave0.40m/sMV Peak GR.mmHg E/A ratio2.02D MVAcm2 Aortic Valve Aortic ValveAortic Stenosis V10.50m/Freda Mean GR.4mmHg V21.20m/Freda Peak GR.7mmHg LVOT Diameter2.2 (1.8-2.4cm)Doppler AVA1.58cm2 Pulmonic Valve V20.50m/s Conclusion Technically good study. Sinus rhythm. Biventricular and biatrial enlargement. Aortic root enlargement. Concentric LVH. Valves appear to be structurally normal without intrinsic defects. Left ventricular function is markedly diminished. EF is approximately 10-15% at best with severe madie bal hypokinesis. [id number] tricuspid regurgitation. Trace pulmonic insufficiency. Moderate tricuspid regurg itation. There is increased echogenicity of the inferior pericardial segment. There is a small pericardial ef fusion. No hemodynamic compromise apparent. No RV collapse. No intracardiac masses thrombi or vegetations discernible
--- NOTE | 2025-02-23 18:54 | DVHINCON2 ---
Date Seen: Feb 23, 2025 Referring Physician Jesús Reason for Consultation Cardiac Clearance History of Present Illness 59-year-old male with PMH for HTN, heavy ETOH use presents to the hospital with inguinal swelling. He states he has history of hernia for the last 2 years. Patient has also been noticing increased shortness of breath over the last 2 months worsening bilateral lower extremity edema and also more abdominal distention than usual. Patient does endorse that he drinks heavily on a daily basis up to 5-6 drinks, also endorses smokes marijuana and intermittent use of amphetamines a couple of times a week. Patient found to have elevated BNP of 1183. Creatinine trending 1.37, CT abdomen and pelvis showing small to moderate volume ascites, moderate body wall edema, large left inguinal hernia containing colon ascitic fluid and fat with no evidence of obstruction. Cardiology consult for preop cardiac assessment. EKG reviewed and shows sinus tachycardia at 102 beats per minute, RBBB. Past Medical History HTN, ETOH, Amphetamine use Past Surgical History Denies pervious cardiac surgeries Family History: Diabetes mellitus G8 MOTHER Social History Endorses use of daily alcohol use, marijuana use, and intermittent amphetamine use couple of times weekly. Allergies: Coded Allergies: Ciprofloxacin (Verified Allergy, Unknown, 02/21/25) Home Meds No Active Prescriptions or Reported Meds Review of Systems Constitutional: No: Fever, Chills, Sweats, Weakness, Malaise, Other Eyes: No: Pain, Vision change, Conjunctivae inflammation, Eyelid inflammation, Other, Redness ENT: No: Ear pain, Ear discharge, Nose pain, Nose discharge, Nose congestion, Mouth pain, Mouth swelling, Throat pain, Throat swelling, Other Respiratory: No: Cough, Dry, Shortness of breath, SOB with exertion, Wheezing, Hemoptysis, Pleuritic Pain, Sputum, Wheezing, Other Cardiovascular: ; No: Chest Pain Palpitations, Orthopnea, Paroxysmal Noc. Dyspnea, Edema, Lt Headedness, Other Gastrointestinal: No: Nausea, Vomiting, Abdominal Pain, Diarrhea, Constipation, Melena, Hematochezia, Other abdominal distention Genitourinary: No Dysuria, No Frequency, No Incontinence, No Hematuria, No Retention, No Other Musculoskeletal: neck pain; No: other, shoulder pain, arm pain, back pain, hand pain, leg pain, foot pain Skin: No: Rash, Lesions, Jaundice, Bruising, Other Neurological: Other (Dizziness, headache.); No: Weakness, Numbness, Incoordination, Change in speech, Confusion, Seizures Vital Signs Vital Signs Date Time Temp Pulse Resp B/P (MAP) Pulse Ox O2 Delivery O2 Flow Rate FiO2 02/23/25 17:00 98.4 101 18 133/104 (114) 100 98.4 02/23/25 08:00 Room Air* 0 21 Physical Exam General appearance: Patient is well-developed, well-nourished, in no acute distress. HEENT: Exam shows: Normocephalic, atraumatic, PERRLA, EOMI Neck: Supple, no bruits Chest: Equal chest excursion bilaterally. Breath sounds normal-no rales or wheezes. Heart: Rhythm: Regular rate; no murmur or gallop Abdomen: Exam shows: Soft, nontender, nondistended Musculoskeletal: No clubbing, no cyanosis, +2-3 lower extremity edema Dermatology: Skin warm, moist. Neurological: Exam shows: Alert and oriented x4, normal speech Available prior records, labs, EKG, rhythm strips reviewed and interpreted Labs/Diagnostic Data Labs Test 02/23/25 05:10 02/22/25 21:30 02/22/25 18:07 02/22/25 05:00 Range/Units White Blood Count 5.0 4.4-10.8 10^3/uL Red Blood Count 4.09 L 4.5-5.90 10^6/uL Hemoglobin 12.5 L 13.5-17.5 g/dL Hematocrit 37.9 L 41.0-53.0 % Mean Corpuscular Volume 92.8 80.0-100.0 fL Mean Corpuscular Hemoglobin 30.6 28.0-32.0 pg Mean Corpuscular Hemoglobin Concent 33.0 32.0-36.0 g/dL Red Cell Distribution Width 16.0 H 11.8-14.3 % Platelet Count 171 140-450 10^3/uL Mean Platelet Volume 9.2 6.9-10.8 fL Neutrophils (%) (Auto) 51.8 37.0-80.0 % Lymphocytes (%) (Auto) 29.8 10.0-50.0 % Monocytes (%) (Auto) 15.8 H 0.0-12.0 % Eosinophils (%) (Auto) 1.7 0.0-7.0 % Basophils (%) (Auto) 0.9 0.0-2.0 % Neutrophils # (Auto) 2.6 1.6-8.6 10 ^3/uL Lymphocytes # (Auto) 1.5 0.4-5.4 10 ^3/uL Monocytes # (Auto) 0.8 0-1.3 10 ^3/uL Eosinophils # (Auto) 0.1 0-0.8 10 ^3/uL Basophils # (Auto) 0 0-0.2 10 ^3/uL Nucleated Red Blood Cells 0.3 % Sodium Level 144 136-145 mmol/L Potassium Level 3.9 3.5-5.1 mmol/L Chloride Level 108 H 98-107 mmol/L Carbon Dioxide Level 26 20-31 mmol/L Anion Gap 10 5-15 Blood Urea Nitrogen 15 9-23 mg/dL Creatinine 1.42 H 0.700-1.30 mg/dL Glomerular Filtration Rate Calc 58 >90 mL/min BUN/Creatinine Ratio 10.6 10.0-20.0 Serum Glucose 71 L 74-106 mg/dL Calcium Level 8.1 L 8.7-10.4 mg/dL Urine Opiates Screen Neg NEGATIVE Urine Fentanyl Screen Neg NEGATIVE Urine Barbiturates Screen Neg NEGATIVE Urine Phencyclidine Screen Neg NEGATIVE Urine Amphetamines Screen Pos NEGATIVE Urine Benzodiazepines Screen Neg NEGATIVE Urine Cocaine Screen Neg NEGATIVE Urine Cannabinoids Screen Neg NEGATIVE Hemoglobin A1c 6.1 H <5.7 % A1C Phosphorus Level 4.0 2.4-5.1 mg/dL Magnesium Level 1.9 1.6-2.6 mg/dL Total Bilirubin 1.1 H 0.2-1.0 mg/dL Direct Bilirubin 0.4 H <0.3 mg/dL Aspartate Amino Transferase (AST) 58 H 13-40 U/L Alanine Aminotransferase (ALT) 65 H 7-40 U/L Alkaline Phosphatase 174 H 46-116 U/L B-Type Natriuretic Peptide 1183.75 0-100 pg/mL Total Protein 5.8 5.7-8.2 g/dL Albumin 3.4 3.2-4.8 g/dL Vitamin B12 Level 695 211-911 pg/mL Vitamin D 25-Hydroxy 41.1 30.0-100 ng/mL Thyroid Stimulating Hormone (TSH) 10.43 H 0.55-4.78 uIU/mL Plasma/Serum Blood Alcohol < 3.0 <10 mg/dL Hepatitis A IgM Antibody Negative Hepatitis B Surface Antigen Negative Negative Hepatitis B Core IgM Antibody Negative Negative Hepatitis C Antibody Negative Negative Test 02/21/25 21:30 02/21/25 18:07 Range/Units Urine Color Yellow Yellow Urine Clarity Clear Clear Urine pH 5.5 5.0-9.0 Urine Specific [place] > 1.050 H 1.001-1.035 Urine Protein 1+ H Negative Urine Ketones Trace Negative Urine Blood Negative Negative /uL Urine Nitrite Negative Negative Urine Bilirubin Negative Negative Urine Urobilinogen Normal Negative mg/dL Urine Leukocyte Esterase Negative Negative /uL Urine RBC <1 0 - 3 /hpf Urine Microscopic WBC 1 0-3 /HPF Urine Squamous Epithelial Cells Few <5 /hpf Urine Bacteria None seen None Seen /hpf Urine Glucose Normal Normal mg/dL Prothrombin Time 12.6 H 9.3-11.8 sec Prothrombin Time INR 1.21 H 0.9-1.15 Activated Partial Thromboplast Time 24.8 24.5-34.5 SEC Lactic Acid Level 1.9 0.4-2.0 mmol/L Microbiology Date/Time Source Procedure Growth Status 02/21/25 18:07 Blood Blood Culture - Preliminary NO GROWTH AFTER 48 HOURS OF INCUBATION. Resulted Assessment * Acute HFrEF - diuresis with Lasix 40 mg IV twice daily. Monitor strict I&Os and kidney function. * Cardiomyopathy - echo with EF 10-15% severe global hypokinesis moderate to severe tricuspid regurgitation, small pericardial effusion. Start on metoprolol 25 mg daily titrate as tolerated, plan at on Harsha/Arb upon DC. Continue monitoring BP with initiation of metoprolol and diuresis. Likely amp hetamine induced. Recommend close Cardiology outpatient follow up. * Pre-op Cardiac Assessment - Patient is requiring inguinal surgery due to hernia . ECG on admission showed sinus tachycardia with RBBB . Shortness of breath with exertion unable to walk up a flight of stairs. Bilateral extremity edema Echo recently showed LV EF 10-15%. Patient is high risk for surgery. * Inguinal hernia - surgery following. * ETOH, marijuana, amphetamine abuse - UDS positive for amphetamines. strongly advised against * Elevated LFT - management per primary team. * GIRISH - monitor with diuresis. Case Discussed with Dr Rollins. Patient high risk for any surgery/procedure given severe cardiomyopathy EF 10-50%. Likely methamphetamine induced. Continue diuresis with Lasix, initiate GDMT as tolerates. Critical care, time spent: 48 minutes This medical document was created using an electronic medical record system with voice recognition software and computerized dictation system. Although this document has been carefully reviewed, there might still be some phonetic and typographical errors. Occasional wrong-word or ``sound-alike substitutions ma y have occurred due to the inherent limitations of voice recognition software. These areas are purely typographical due to imperfections of the software programs and do not reflect any compromise in the patient's medical care. Please read the chart carefully and recognize, using context, where these substitutions have occurred. Thank you for allowing me to participate in the management of this patient. The treatment plan was discussed with and agreed upon by patient/family including requesting consultants and ordering of imaging/procedures. Plan discussed with: Patient NYHA Physical activity limitations: Class4(Severe)discomfort Date of Service: Feb 23, 2025 Billing Provider: CONTRERAS ANTONIO Cardiology Common Codes: [id number] INP/OBS CARE (High), [id number] CARE 30-74 MIN CONTRERAS ANTONIO Feb 23, 2025 18:54
[2025-02-23 20:00] VITALS: PULSE 104
[2025-02-23] MEDS: METOPROLOL SUCCINATE XL 50 MG TAB PO ONE (20:28)
[2025-02-23 21:00] VITALS: BP 146/121; PULSE 90; RESP 18; TEMP 97.8; O2SAT 100
[2025-02-24 01:00] VITALS: BP 124/100; PULSE 83; RESP 19; TEMP 98.1; O2SAT 98
[2025-02-24] MEDS: diphenhdrAMINE HCL 50 MG/1 ML VL IV ONE (02:36)
[2025-02-24] MEDS: methylPREDNISolone SOD SUCC 125 MG/2 ML VL IV ONE (02:37)
[2025-02-24 05:00] VITALS: BP 120/99; PULSE 71; RESP 18; TEMP 98.1; O2SAT 99
[2025-02-24 06:02] LABS: Hematocrit 41.7 % (41.0-53.0); Hemoglobin 13.5 g/dL (13.5-17.5); Mean Corpuscular Hemoglobin 30.9 pg (28.0-32.0); Mean Corpuscular Volume 95.2 fL (80.0-100.0); Nucleated Red Blood Cells % 0.3 %
[2025-02-24 06:25] LABS: Anion Gap 10 (5-15); Carbon Dioxide 22 mmol/L (20-31); Potassium 4.3 mmol/L (3.5-5.1); Sodium 142 mmol/L (136-145)
[2025-02-24 06:28] LABS: Calcium 8.7 mg/dL (8.7-10.4); Chloride 110 mmol/L (98-107)
[2025-02-24 06:31] LABS: BUN/Creatinine Ratio 9.4 (10.0-20.0); Blood Urea Nitrogen 15 mg/dL (9-23); Glucose 94 mg/dL (74-106)
[2025-02-24] MEDS: FUROSEMIDE 40 MG/4 ML VIAL IV SCH (06:32)
[2025-02-24 08:00] VITALS: PULSE 71; PULSE 90
[2025-02-24 09:00] VITALS: BP 136/102; PULSE 89; RESP 18; TEMP 98.2; O2SAT 94
[2025-02-24] MEDS ORDERED: METOPROLOL SUCCINATE XL 50 MG TAB PO SCH (10:00)
--- NOTE | 2025-02-24 12:10 | DVHPN2 ---
Consult Progress Note Subjective Patient reports: No new complaints Review of Systems: GI:Abnormal (Abdominal pain) Objective vital signs Vital Sign Date Time Temp Pulse Resp B/P (MAP) Pulse Ox O2 Delivery O2 Flow Rate FiO2 02/24/25 09:00 98.2 89 18 136/102 (113) 94 98.2 02/24/25 08:00 Room Air* 0 21 Total Intake and Output 02/23/25 02/23/25 02/24/25 15:00 23:00 07:00 Intake Total 150 ml 1750 ml 1200 ml Output Total 900 ml Balance 150 ml 1750 ml 300 ml medications Current Medications Medications Dose Ordered Sig/Jolynn Route Start Time Stop Time Status Last Admin Dose Admin Pantoprazole Sodium 40 mg DAILY IV 02/22/25 10:00 02/24/25 10:36 40 MG Acetaminophen 325 mg Q4HP PRN PO 02/22/25 00:00 Tramadol HCl 50 mg Q6HP PRN PO 02/22/25 00:30 02/22/25 16:08 50 MG Acetaminophen/ Hydrocodone Bitart 1 tab Q4HPRN PRN PO 02/22/25 14:30 Hydromorphone HCl 0.25 mg Q6HPRN PRN IV 02/22/25 14:30 02/23/25 05:57 0.25 MG Ceftriaxone Sodium 50 ml @ 100 mls/hr DAILY@09 IV 02/22/25 14:30 02/24/25 10:35 100 MLS/HR Metronidazole 100 ml @ 100 mls/hr Q8HR IV 02/22/25 14:30 02/24/25 06:32 100 MLS/HR Furosemide 40 mg DAILY PO 02/25/25 10:00 Examination: ABDOMEN:Abnormal (Distended), MSK:Abnormal (+2 edema) laboratory and microbiology Laboratory Tests 02/24/25 05:14 Test 02/24/25 05:14 Range/Units Serum Glucose 94 74-106 mg/dL Problem List/Assessment/Plan Problem List/Assessment/Plan Assessment * Acute HFrEF - diuresis with Lasix 40 mg IV twice daily. Monitor strict I&Os and kidney function. * Cardiomyopathy - echo with EF 10-15% severe global hypokinesis moderate to severe tricuspid regurgitation, small pericardial effusion. Start on metoprolol 50 mg daily titrate as tolerated, plan at on Harsha/Arb upon DC. Continue monitoring BP with initiation of metoprolol and diuresis. Likely amphetamine induced. Recommend close Cardiology outpatient follow up. * Pre-op Cardiac Assessment - Patient is requiring inguinal surgery due to hernia . ECG on admission showed sinus tachycardia with RBBB . Shortness of breath with exertion unable to walk up a flight of stairs. Bilateral extremity edema Echo recently showed LV EF 10-15%. Patient is high risk for surgery. * Inguinal hernia - surgery following. * ETOH, marijuana, amphetamine abuse - UDS positive for amphetamines. strongly advised against * Elevated LFT - management per primary team. * GIRISH - monitor with diuresis. Lasix which to p.o. given worsening creatinine overnight. Case Discussed with Dr Rollins. Patient high risk for any surgery/procedure given severe cardiomyopathy EF 10-50%. Likely methamphetamine induced. Continue diuresis with Lasix, initiate GDMT as tolerates. Patient states had some minor reaction with throat swelling cough and some generalized edema with lisinopril states no reaction with metoprolol. Metoprolol continued close monitoring for any reaction. Critical care, time spent: 40 minutes This medical document was created using an electronic medical record system with voice recognition software and computerized dictation system. Although this document has been carefully reviewed, there might still be some phonetic and typographical errors. Occasional wrong-word or ``sound-alike substitutions may have occurred due to the inherent limitations of voice recognition software. These areas are purely typographical due to imperfections of the software programs and do not reflect any compromise in the patient's medical care. Please read the chart carefully and recognize, using context, where these substitutions have occurred. Thank you for allowing me to participate in the management of this patient. The treatment plan was discussed with and agreed upon by patient/family including requesting consultants and ordering of imaging/procedures. Plan discussed with: Patient Dietary Evaluation Review Comments: 1) Initiate cardiac diet 2) Encourage optimal PO intake 3) Follow-up with cardiology and gastroenterology/hepatology 4) Follow-up with case management social worker r/t polysubstance abuse 5) Continue to monitor I&O, labs, and skin integrity Expected Outcomes/Goals: 1) appetite and labs to improve 2) f/u in 3-5 days Date of Service: Feb 24, 2025 Billing Provider: CONTRERAS ANTONIO [facility] Common Visit Codes: 45058-[id number] INP/OBS CARE(HIGH), 43347-[id number] CARE 30-74 MIN CONTRERAS ANTONIO [facility] Feb 24, 2025 12:10
[2025-02-24] MEDS: METOPROLOL SUCCINATE XL 50 MG TAB PO ONE (12:15)
[2025-02-24] MEDS ORDERED: CEPH250C PO (14:26)
[2025-02-24] MEDS ORDERED: FURO1TAB31 PO (14:26)
[2025-02-24] MEDS ORDERED: METO-289 PO (14:26)
--- NOTE | 2025-02-24 14:32 | DVHDSRES ---
Discharge Summary Date of Admission Resident Creating Document: HELLEN FRAZIER RESIDENT Feb 21, 2025 at 23:57 Date of Discharge: Feb 24, 2025 Admitting Diagnosis Left inguinal pain; worsening Labs/Diagnostic Data: Laboratory Results Test 02/24/25 11:42 02/24/25 05:14 02/22/25 21:30 02/22/25 18:07 White Blood Count 5.9 10^3/uL (4.4-10.8) Red Blood Count 4.38 10^6/uL (4.5-5.90) Hemoglobin 13.5 g/dL (13.5-17.5) Hematocrit 41.7 % (41.0-53.0) Mean Corpuscular Volume 95.2 fL (80.0-100.0) Mean Corpuscular Hemoglobin 30.9 pg (28.0-32.0) Mean Corpuscular Hemoglobin Concent 32.4 g/dL (32.0-36.0) Red Cell Distribution Width 16.4 % (11.8-14.3) Platelet Count 187 10^3/uL (140-450) Mean Platelet Volume 9.1 fL (6.9-10.8) Neutrophils (%) (Auto) 79.2 % (37.0-80.0) Lymphocytes (%) (Auto) 13.8 % (10.0-50.0) Monocytes (%) (Auto) 5.7 % (0.0-12.0) Eosinophils (%) (Auto) 0.7 % (0.0-7.0) Basophils (%) (Auto) 0.6 % (0.0-2.0) Neutrophils # (Auto) 4.7 10 ^3/uL (1.6-8.6) Lymphocytes # (Auto) 0.8 10 ^3/uL (0.4-5.4) Monocytes # (Auto) 0.3 10 ^3/uL (0-1.3) Eosinophils # (Auto) 0 10 ^3/uL (0-0.8) Basophils # (Auto) 0 10 ^3/uL (0-0.2) Nucleated Red Blood Cells 0.3 % Sodium Level 142 mmol/L (136-145) Potassium Level 4.3 mmol/L (3.5-5.1) Chloride Level 110 mmol/L (98-107) Carbon Dioxide Level 22 mmol/L (20-31) Anion Gap 10 (5-15) Blood Urea Nitrogen 15 mg/dL (9-23) Creatinine 1.59 mg/dL (0.700-1.30) Glomerular Filtration Rate Calc 50 mL/min (>90) BUN/Creatinine Ratio 9.4 (10.0-20.0) Serum Glucose 94 mg/dL (74-106) Calcium Level 8.7 mg/dL (8.7-10.4) Urine Opiates Screen Neg (NEGATIVE) Urine Fentanyl Screen Neg (NEGATIVE) Urine Barbiturates Screen Neg (NEGATIVE) Urine Phencyclidine Screen Neg (NEGATIVE) Urine Amphetamines Screen Pos (NEGATIVE) Urine Benzodiazepines Screen Neg (NEGATIVE) Urine Cocaine Screen Neg (NEGATIVE) Urine Cannabinoids Screen Neg (NEGATIVE) Hemoglobin A1c 6.1 % A1C (<5.7) Phosphorus Level 4.0 mg/dL (2.4-5.1) Magnesium Level 1.9 mg/dL (1.6-2.6) Total Bilirubin 1.1 mg/dL (0.2-1.0) Direct Bilirubin 0.4 mg/dL (<0.3) Aspartate Amino Transferase (AST) 58 U/L (13-40) Alanine Aminotransferase (ALT) 65 U/L (7-40) Alkaline Phosphatase 174 U/L (46-116) B-Type Natriuretic Peptide 1183.75 pg/mL (0-100) Total Protein 5.8 g/dL (5.7-8.2) Albumin 3.4 g/dL (3.2-4.8) Vitamin B12 Level 695 pg/mL (211-911) Vitamin D 25-Hydroxy 41.1 ng/mL (30.0-100) Thyroid Stimulating Hormone (TSH) 10.43 uIU/mL (0.55-4.78) Test 02/22/25 05:00 02/21/25 21:30 02/21/25 18:07 Plasma/Serum Blood Alcohol < 3.0 mg/dL (<10) Hepatitis A IgM Antibody Negative Hepatitis B Surface Antigen Negative (Negative) Hepatitis B Core IgM Antibody Negative (Negative) Hepatitis C Antibody Negative (Negative) Urine Color Yellow (Yellow) Urine Clarity Clear (Clear) Urine pH 5.5 (5.0-9.0) Urine Specific [place] > 1.050 (1.001-1.035) Urine Protein 1+ (Negative) Urine Ketones Trace (Negative) Urine Blood Negative /uL (Negative) Urine Nitrite Negative (Negative) Urine Bilirubin Negative (Negative) Urine Urobilinogen Normal mg/dL (Negative) Urine Leukocyte Esterase Negative /uL (Negative) Urine RBC <1 /hpf (0 - 3) Urine Microscopic WBC 1 /HPF (0-3) Urine Squamous Epithelial Cells Few /hpf (<5) Urine Bacteria None seen /hpf (None Seen) Urine Glucose Normal mg/dL (Normal) Prothrombin Time 12.6 sec (9.3-11.8) Prothrombin Time INR 1.21 (0.9-1.15) Activated Partial Thromboplast Time 24.8 SEC (24.5-34.5) Lactic Acid Level 1.9 mmol/L (0.4-2.0) Other Laboratory Tests 02/24/25 05:14 Brief Hx & Hospital Course: Mr. Duncan is a 59 year old male with PMHX of Hypertension, heavy alcohol use, who presents today with chief complaint of left inguinal swelling. Patient reports that he has had this hernia for the past 2 years and had gone to his primary care physician but nothing was done. Patient states that the past 5-6 months the hernia has increased in size and has not been reducible as before. He reports that he has been in pain for a while now but in the last couple of days the pain has increased And yesterday had 3 episodes of vomiting without any blood, which was watery and nausea as well as shortness of breath that increased on lying down. He describes the pain as sharp, concentrated in the testicular region, nonradiating, 8/10 intensity, without aggravating or relieving factors. patient also reports that he had a UTI a few months ago and was given ciprofloxacin for to which he had an allergic reaction he had swelling of his face, body and of his legs. The leg swelling has been there for the past 3 weeks and has not gone away. States that the swelling in his testicles have worsened since then. Workup revealed transaminitis, hemoglobin A1c 6.1, GIRISH with creatinine 1.37. CT scan revealed-Small to moderate volume ascites.Moderate body wall edema. Mild wall thickening of the distal esophagus, stomach and proximal small bowel loops which may be due to inadequate distention with mild esophagitis and gastroenteritis not excluded. Large left inguinal hernia containing the colon, ascitic fluid and fat with no evidence of obstruction. Lower extremity Doppler study negative for DVT. Testicular ultrasound Left inguinal hernia containing fluid and a bowel loop. Single wall ultrasound revealed-Gallbladder wall thickening with no gallstones visualized and negative reported sonographic aguirre's sign. Gallbladder wall thickening may be due to 3rd spacing of fluid in the setting of ascites rather than acute cholecystitis. Correlate with clinical findings. Heterogeneous echogenicity of the liver with at least small volume ascites. Pancreas and common bile duct were not able to be visualized due to bowel gas. CXR no acute cardiopulmonary disease. Echo 2D revealed LVEF 10-15% with severe global hypokinesia, [id number] TR, biventricular and biatrial enlargement, concentric LVH. Small pericardial effusion. Patient was treated conservatively. Patient was seen by surgeon, recommended hernia repair can be done electively. Patient was also seen by Cardiology, recommended to start on metoprolol and Lasix. And gradually GDMT. As per Cardiology patient is high-risk for surgery. Patient is being discharged with metoprolol and Lasix. PATIENT REPORTED HE HAS ALLERGY TO METOPROLOL AND DENIED TO TAKE METOPROLOL, THAT IS WHY METOPROLOL WAS NOT GIVEN Patient's meds were sent to the pharmacy electronically. Patient was hemodynamically stable on discharge. Patient was advised to follow up with the PCP in 2 weeks, at discharge clinic as per schedule with BMP report. Follow up with Cardiology and surgeon as per schedule. Physical examination on the day of discharge: General: The patient alert and oriented in person place and time. Patient following commands HEENT: Normocephalic, atraumatic, normal reactive pupils, EOM intact, pink conjunctiva, pink moist mucous membrane Respiratory/pulmonary: Bilateral chest expansion, no pain on palpation of chest wall, clear lungs bilaterally, vesicular murmurs present in almost all lung santos, no associated crackles or wheezes. Cardiovascular: Normal RRR, normal S1 and S2, no murmurs Abdomen: Abdomen mildly distended, normal bowel sounds, soft, no palpable masses, presence of right umbilical hernia, pain on palpation in suprapubic region : Scrotum is observed to be tender enlarged, without changes in coloration, and hard and tender to the touch, penis is horizontally deviated, hernia is nonreducible, Extremities: No deformities, Bilateral pitting edema +2 reaching up to lower calf, normal pulses Skin: No rashes or pruritus, there is no sacral edema present at this time, presence of scabs in bilateral knees due to fall. Neurological: Intact cranial nerves with no focal neurologic deficits laboratory and microbiology Discussed with Dr. Christiansen Consults/Reason for consult Surgery for left inguinal hernia Operations or Procedures [address] [address] Ph: [phone] DIAGNOSTIC IMAGING Diagnostic Imaging Report : [id number] Signed PATIENT: YASMEEN DUNCAN ACCT: [id number] UNIT: [id number] : 1965 LOC: ER ROOM / BED: / AGE / SEX: 59 / M ADM STATUS: REG ER SERVICE 5603 ORDERING PHYSICIAN: LUIS M MARTÍNEZ MD PROCEDURE(s): ABPLIV - CT AB PEL WITH IV CON ONLY REASON: pain ORDER NUMBER(s): [id number], ACCESSION NUMBER(s): [id number] Exam: CT CT AB PEL WITH IV CON ONLY History: pain Comparison Study: None TECHNIQUE: Multidetector CT of the abdomen the pelvis with IV contrast. Axial, coronal and sagittal multiplanar reformats were obtained from the axial data set by the technologist. Radiation Dose Information: CT Dose: CTDI volume is 18.74 mGy. Dose-length product is 3.92 mGy*cm FINDINGS: Bibasilar atelectasis with trace right-sided pleural effusion. Heart size is within normal limits. Small pericardial effusion. Small to moderate volume ascites. No evidence of intraperitoneal free air. Liver, spleen, gallbladder, pancreas and adrenal glands unremarkable. Kidneys and ureters unremarkable. Mild wall thickening of the Urinary bladder which is most likely from inadequate distention. Prostate is unremarkable. Mild wall thickening of the distal esophagus. Mild gastric wall thickening. Mild wall Thickening of proximal small bowel loops. The remainder of the small bowel loops unremarkable. Appendix is unremarkable. Small to moderate amount of fecal material within the colon. Large left inguinal hernia containing the colon, ascitic fluid and fat with no evidence of obstruction. Small fat and ascitic fluid containing umbilical hernia. Moderate body wall edema. No evidence of acute osseous abnormalities. Focus of metallic density adjacent to the left L5 lamina. Old left-sided posterior rib fracture deformities. No evidence of acute osseous abnormalities. IMPRESSION: Small to moderate volume ascites. Moderate body wall edema. Mild wall thickening of the distal esophagus, stomach and proximal small bowel loops which may be due to inadequate distention with mild esophagitis and gastroenteritis not excluded. Large left inguinal hernia containing the colon, ascitic fluid and fat with no evidence of obstruction. ATED BY: LAURA RIVERA DO DICTATED DATE/TIME: 02/21/252054 SIGNED BY: LAURA RIVERA DO SIGNED DATE/TIME: 02/21/252054 CC: [place] [address] Ph: [phone] DIAGNOSTIC IMAGING Diagnostic Imaging Report : [id number] Signed PATIENT: YASMEEN DUNCAN ACCT: [id number] UNIT: [id number] : 1965 LOC: OVERFLOW ROOM / BED: [address] [place] [address] / AGE / SEX: 59 / M ADM STATUS: ADM IN SERVICE 0000 ORDERING PHYSICIAN: PALMER NASH RESIDENT PROCEDURE(s): BLDVT - BiLat Lower DVT REASON: R/o DVT ORDER NUMBER(s): [id number], ACCESSION NUMBER(s): [id number] Bilateral lower extremity venous duplex Clinical History: R/o DVT Comparison: None Technique: Duplex Doppler evaluation of the deep venous systems of both lower extremities from the common femoral veins to the popliteal veins including color Doppler and spectral/pulsed waveform analysis was performed. Findings: RIGHT SIDE: The common femoral vein demonstrates appropriate compressibility and waveform variability. There is compressibility/patency of the great saphenous vein at the proximal thigh. The femoral vein demonstrates appropriate compressibility and waveform variability. The deep femoral vein demonstrates appropriate compressibility and waveform variability. The popliteal vein demonstrates appropriate compressibility and waveform variability. There is normal compressibility at the tibioperoneal trunk. Enlarged right inguinal lymph node measures 3.0 cm. LEFT SIDE: The common femoral vein demonstrates appropriate compressibility and waveform variability. There is compressibility/patency of the great saphenous vein at the proximal thigh. The femoral vein demonstrates appropriate compressibility and waveform variability. The deep femoral vein demonstrates appropriate compressibility and waveform variability. The popliteal vein demonstrates appropriate compressibility and waveform variability. There is normal compressibility at the tibioperoneal trunk. Impression: 1. No right or left femoropopliteal venous thrombosis. 2. If clinical concern/symptoms persist or worsen, short-interval follow-up study is suggested. 3. Enlarged right inguinal lymph node measures 3.0 cm. ATED BY: LOGAN MCFARLANE MD DICTATED DATE/TIME: 02/22/25107 SIGNED BY: LOGAN MCFARLANE MD SIGNED DATE/TIME: 02/22/25107 CC: [place] [address] Ph: [phone] DIAGNOSTIC IMAGING Diagnostic Imaging Report : [id number] Signed PATIENT: YASMEEN DUNCAN ACCT: [id number] UNIT: [id number] : 1965 LOC: OVERFLOW ROOM / BED: [address] [place] [address] / AGE / SEX: 59 / M ADM STATUS: ADM IN SERVICE 0000 ORDERING PHYSICIAN: PALMER NASH RESIDENT PROCEDURE(s): TESUS - TESTICULAR ULTRASOUND REASON: Inguinal hernia ORDER NUMBER(s): [id number], ACCESSION NUMBER(s): [id number] ULTRASOUND OF SCROTUM AND CONTENTS. INDICATION: Inguinal hernia COMPARISON: None TECHNIQUE: Multiple real-time grayscale sonographic and color and duplex Doppler images of the scrotum and its contents were obtained. FINDINGS: The right testicle measures 3.0 x 2.4 x 2.9 cm. The left testicle measures 3.5 x 2.4 x 2.9 cm. Both testicles demonstrate homogeneous echotexture without evidence of focal lesions. Right and left epididymis appears normal. Subsequent color and duplex Doppler interrogation of the testes demonstrated symmetric normal vascular flow to both testicles. No focal areas of hyperemia were seen. Small bilateral hydroceles. Left inguinal hernia containing fluid and likely a bowel loop. This was better assessed on recent CT. IMPRESSION: Left inguinal hernia containing fluid and a bowel loop. ATED BY: ADIS ROOT MD DICTATED DATE/TIME: 02/22/25155 SIGNED BY: ADIS ROOT MD SIGNED DATE/TIME: 02/22/25 0156 CC: [place] [address] Ph: [phone] DIAGNOSTIC IMAGING Diagnostic Imaging Report : [id number] Signed PATIENT: YASMEEN DUNCAN ACCT: [id number] UNIT: [id number] : 1965 [facility] AGE / SEX: 59 / M ADM STATUS: ADM IN SERVICE 4 ORDERING PHYSICIAN: PALMER NASH RESIDENT PROCEDURE(s): ABDL - ABDOMEN LIMITED REASON: Eval liver ORDER NUMBER(s): [id number], ACCESSION NUMBER(s): [id number] CLINICAL INFORMATION: Elevated liver function tests. TECHNIQUE: Grayscale sonographic imaging of the right upper quadrant of the abdomen was performed, assisted by color Doppler techniques. COMPARISON: None FINDINGS: The gallbladder wall measures 5 mm in thickness, abnormally thickened. No stones are seen.Negative reported sonographic Aguirre's sign. The common bile duct is not visualized. Heterogeneous echogenicity of the liver. Liver measures 16.7 cm in craniocaudal dimension, at the upper limits of normal. The pancreas is obscured by bowel gas. There is ascites. Main portal vein is patent with normal hepatopetal flow demonstrated. The right kidney measures 10.2 cm. There is no hydronephrosis. Right renal cortical echogenicity and cortical thickness are within normal limits. IMPRESSION: 1. Gallbladder wall thickening with no gallstones visualized and negative reported sonographic aguirre's sign. Gallbladder wall thickening may be due to 3rd spacing of fluid in the setting of ascites rather than acute cholecystitis. Correlate with clinical findings. 2. Heterogeneous echogenicity of the liver with at least small volume ascites. 3. Pancreas and common bile duct were not able to be visualized due to bowel gas. ATED BY: CRISTOFER ÁLVAREZ DO DICTATED DATE/TIME: 02/22/25853 SIGNED BY: CRISTOFER ÁLVAREZ DO SIGNED DATE/TIME: 02/22/25853 CC: [address] [address] Ph: [phone] DIAGNOSTIC IMAGING Diagnostic Imaging Report : [id number] Signed PATIENT: YASMEEN DUNCAN ACCT: [id number] UNIT: [id number] : 1965 LOC: OVERFLOW ROOM / BED: 1009ER / A AGE / SEX: 59 / M ADM STATUS: ADM IN SERVICE 0948 ORDERING PHYSICIAN: LISA SCHAFFER PROCEDURE(s): CXRP - CHEST PORTABLE REASON: sob ORDER NUMBER(s): [id number], ACCESSION NUMBER(s): [id number] EXAM: XY CHEST PORTABLE Indication: sob Technique: Single frontal view of the chest was obtained Comparison: None FINDINGS: Lines and Tubes: None Lungs: No focal consolidation. Pleura: No effusion. No pneumothorax. Cardiomediastinal contours: Cardiomegaly. Bones: No acute osseous abnormality. IMPRESSION: No acute cardiopulmonary disease. Cardiomegaly. ATED BY: JEANNIE HORTA MD DICTATED DATE/TIME: 02/22/25 103 SIGNED BY: JEANNIE HORTA MD SIGNED DATE/TIME: 02/22/25 103 CC: Condition at Discharge: Stable Final Diagnosis/Problems List Non reducible left inguinal hernia extending to the scrotum causing left inguinal pain; no surgical intervention at this time HFrEF, LVEF 10-15%, global hypokinesia Cardiomyopathy Mild pericardial effusion Tricuspid regurgitation GIRISH likely due to VMN/hemodynamically mediated Hypertensive urgency Heterogeneous echogenicity of the liver Ascites, DVT ruled out Marijuana use Heavy alcohol use Discharge Disposition: Home Discharge Instruct/Medications Diet: Consistent carbohydrate, Cardiac 2g Na,low cholest Activity: No Restrictions, As Tolerated Follow Up/Referral: Please follow up at discharge clinic in 2 weeks as per schedule with the lab of BMP; the patient was provided with lab request to do the BMP PLEASE FOLLOW UP WITH THE PRIMARY CARE PHYSICIAN IN 2 WEEKS Please follow up with the business process consultant in 2 weeks Please follow up with your surgeon in 2-3 weeks Medications: Lasix 40 mg p.o. daily Keflex as prescribed PATIENT REFUSED TO TAKE METOPROLOL EVEN THE CARDIOLOGY RECOMMENDED THAT Scheduled Cephalexin (Keflex Capsule), 1 CAP PO QID Furosemide (Lasix), 40 MG PO DAILY Discharge Statement: "Patient was advised to return to the ER or call 911 if any headaches, dizziness, shortness of breath, chest pain, abdominal pain, bleeding, fevers, or worsening of medical condition. Patient was counseled about treatment plan, medications, possible side effects, patientverbalized understanding. All questions were answered to the best of my ability. This discharge took greater then 30 minutes in planning, reviewing documentation, counseling the patient, and discussing with other team members." ASSESSMENT ASSESSMENT Assessment Addendum Addendum Addendum I was physically present for the chavez portions of the service provided to patient by THE RESIDENT. I have reviewed the documentation, discussed the case with resident and agree with the resident's documentation except as noted. Also the patient's clinical case was discussed with the patient's nurse. This medical document was created using an electronic medical record system with computerized dictation system. Although this document has been carefully reviewed, there might still be some phonetic and typographical errors. These areas are purely typographical due to imperfections of the software programs, and do not reflect any compromise in the patient's medical care. Late signature. Date of Service: Feb 24, 2025 Billing Provider: MAUDE CHRISTIANSEN MD Common Visit Codes: 32126-HFY/OBS DISCH DAY >30min PAWAN QUIROZ RESIDENT Feb 24, 2025 14:32 MAUDE CHRISTIANSEN MD Feb 25, 2025 10:58
[2025-02-24 15:02] VITALS: BP 120/99; PULSE 109; RESP 18; TEMP 36.8
[2025-02-25] MEDS ORDERED: FUROSEMIDE 40 MG TAB PO SCH (10:00)
[2025-02-25] MEDS ORDERED: METOPROLOL SUCCINATE XL 50 MG TAB PO SCH (10:00)
== END 2025-02-24 15:20 | disposition home or self-care (01) | DRG 194 ==
LOC: ER 17:03 → OVERFLOW 23:57 → WEST WING 02-22 22:24 → TELE-WESTW 02-23 16:38
PROVIDERS: ADMIT Internal Medicine; ATTEND Internal Medicine
DX: I11.0 Hypertensive heart disease with heart failure (principal); N17.0 Acute kidney failure with tubular necrosis; I31.39 Other pericardial effusion (noninflammatory); R18.8 Other ascites; K40.90 Unilateral inguinal hernia, without obstruction or gangrene, not specified as recurrent; I50.21 Acute systolic (congestive) heart failure; I42.9 Cardiomyopathy, unspecified; I16.0 Hypertensive urgency; I45.10 Unspecified right bundle-branch block; F12.90 Cannabis use, unspecified, uncomplicated; F15.10 Other stimulant abuse, uncomplicated; I07.1 Rheumatic tricuspid insufficiency; Z83.3 Family history of diabetes mellitus; Z88.1 Allergy status to other antibiotic agents
CPT/HCPCS: 36415; 71045; 74177; 76705; 76870; 80048; 80053; 80074; 80076; 80307; 80320; 81001; 82306; 82607; 83036; 83605; 83735; 83880; 84100; 84443; 85025; 85610; 85730; 87040; 93005; 93306; 93970; 96374; 96375; G0378; J2405; J2470; J3490

== ENCOUNTER 2025-04-13 12:03 | Emergency (ER) | payer MEDICAID ==
[~2025-04-13] VITALS: Ht 167.6 cm; Wt 90.1 kg
[~2025-04-13 12:03] MED LIST: CEPH250C PO; FURO1TAB31 PO
[2025-04-13 12:14] VITALS: TEMP 97.6; O2SAT 96
--- NOTE | 2025-04-13 13:06 | ED.PDOC ---
GI ASSESSMENT HPI Comments 59 y.o male with PMHx of liver disease, presents to the ED for a chief complaint of abdominal pain associated with distention and SOB. Patient has been out of his Lasix medication. He has been taking ibuprofen for pain managment. Patient states earlier today began to have pain to the umbilicus. He has a known umbilical hernia x2 weeks. He states however he thought it should be seen. He also states that he has been out of his regular medications including Lasix and metoprolol. Patient states he has been more short of breath. Denies any recent cough cold runny nose fevers or chills. Chief Complaint: Abdominal Pain Time Seen by MD: 15:24 Reviewed Notes: Nurses Notes, Medications, Allergies Allergies: Coded Allergies: Ciprofloxacin (Verified Allergy, Unknown, 02/21/25) Home Meds Active Scripts Furosemide (Lasix) 40 Mg Tab, 40 MG PO DAILY for 30 Days, #30 TAB Prov:ISHA CHOUDHARY MD 04/13/25 Metoprolol Succinate (Metoprolol Succinate Er) 50 Mg Tab, 1 TAB PO DAILY, #30 TAB 5 Refills Prov:ISHA CHOUDHARY MD 04/13/25 Cephalexin (KEFLEX CAPSULE) 250 Mg Cp, 1 CAP PO QID for 5 Days, #20 CAP Prov:PAWAN QUIROZ 02/24/25 Furosemide (Lasix) 40 Mg Tab, 40 MG PO DAILY for 30 Days, #30 TAB Prov:PAWAN QUIROZ 02/24/25 Information Source: Patient Mode of Arrival: Ambulatory Timing: Weeks (1) Duration: Since onset Quality: Sharp Vomitus: None Stool: Normal Severity: Moderate Recent: None Recent Hx of: None Modifying Factors: Nothing Associated sign and symptoms: Abdominal Pain Past Medical History PAST MEDICAL HISTORY: UTI'S Surgical History: Denies all surgeries Family History Family History: Reviewed,noncontributory to illness Social History Smoker: Non-Smoker Alcohol: Occasionally Drugs: Marijuana Lives In: Home Constitutional: denies: chills, diaphoresis, fatigue, fever, malaise, sweats, weakness, others EENTM: denies: blurred vision, double vision, ear bleeding, ear discharge, ear drainage, ear pain, ear ringing, eye pain, eye redness, hearing loss, mouth pain, mouth swelling, nasal discharge, nose bleeding, nose congestion, nose pain, photophobia, tearing, throat pain, throat swelling, voice changes, others Respiratory: denies: cough, hemoptysis, orthopnea, SOB at rest, shortness of breath, SOB with excertion, stridor, wheezing, others Cardiovascular: denies: chest pain, dizzy spells, diaphoresis, Dyspnea on exertion, edema, irregular heart beat, left arm pain, lightheadedness, palpitations, PND, syncope, others Gastrointestinal: reports: abdominal pain; denies: abdomen distended, blood streaked bowels, constipated, diarrhea, dysphagia, difficulty swallowing, hematemesis, melena, nausea, poor appetite, poor fluid intake, rectal bleeding, rectal pain, vomiting, others Genitourinary: denies: burning, dysuria, flank pain, frequency, hematuria, incontinence, penile discharge, penile sore, pain, testicle pain, testicle swelling, urgency, others Neurological: denies: dizziness, fainting, headache, left sided numbness, left sided weakness, numbness, paresthesia, pre-existing deficit, right sided numbness, right sided weakness, seizure, speech problems, tingling, tremors, weakness, others Musculoskeletal: denies: back pain, gout, joint pain, joint swelling, muscle pain, muscle stiffness, neck pain, others Integumetry: denies: bruises, change in color, change in hair/nails, dryness, laceration, lesions, lumps, rash, wounds, others Allergic/Immunocompromised: denies: Difficulty Healing, Frequent Infections, Hives, Itching, others Hematologic/Lymphatic: denies: anemia, blood clots, easy bleeding, easy bruising, swollen glands, others Endocrine: denies: excessive hunger, excessive sweating, excessive thirst, excessive urination, flushing, intolerance to cold, intolerance to heat, unexplained weight gain, unexplained weight loss, others Psychiatric: denies: anxiety, bipolar disorder, depression, hopeless, panic disorder, schizophrenia, sleepless, suicidal, others All Other Systems: Reviewed and Negative Physical Exam General Appearance: Mild Distress HEENT: Normal ENT Inspection, Pharynx Normal, TMs Normal Neck: Full Range of Motion, Non-Tender, Normal, Normal Inspection Respiratory: Chest Non-Tender, Lungs Clear, No Accessory Muscle Use, No Respiratory Distress, Normal Breath Sounds Cardiovascular: No Edema, No JVD, No Murmur, No Gallop, Normal Peripheral Pulses, Regular Rate/Rhythm Breast Exam: Deferred Gastrointestinal: Other (umbilical hernia that is easily reducible) Genitalia: Deferred Pelvic: Deferred Rectal: Deferred Extremities: No calf tenderness, Normal capillary refill, Normal inspection, Normal range of motion, Non-tender, No pedal edema Musculoskeletal : Apperance: Normal Neurologic: Alert, No Motor Deficits, Normal Affect, Normal Mood, No Sensory Deficits Cerebellar Function: Normal Reflexes: Normal Skin: Dry, Normal Color, Warm Lymphatic: No Adenopathy Was a procedure done? Was a procedure done?: No GI differential Dx Differential Diagnosis: Esophagitis, Gastroenteritis, Hernia, Inflammatory BD X-Ray, Labs, Meds, VS Vital Signs Date Time Temp Pulse Resp B/P (MAP) Pulse Ox O2 Delivery O2 Flow Rate FiO2 04/13/25 12:14 97.6 68 18 145/96 96 97.6 Lab Test 04/13/25 12:59 Range/Units White Blood Count 5.5 4.4-10.8 10^3/uL Red Blood Count 4.35 L 4.5-5.90 10^6/uL Hemoglobin 13.1 L 13.5-17.5 g/dL Hematocrit 39.8 L 41.0-53.0 % Mean Corpuscular Volume 91.4 80.0-100.0 fL Mean Corpuscular Hemoglobin 30.0 28.0-32.0 pg Mean Corpuscular Hemoglobin Concent 32.8 32.0-36.0 g/dL Red Cell Distribution Width 18.8 H 11.8-14.3 % Platelet Count 207 140-450 10^3/uL Mean Platelet Volume 9.1 6.9-10.8 fL Neutrophils (%) (Auto) 37.0-80.0 % Lymphocytes (%) (Auto) 10.0-50.0 % Monocytes (%) (Auto) 0.0-12.0 % Basophils (%) (Auto) 0.0-2.0 % Neutrophils # (Auto) 1.6-8.6 10 ^3/uL Lymphocytes # (Auto) 0.4-5.4 10 ^3/uL Monocytes # (Auto) 0-1.3 10 ^3/uL Differential Total Cells Counted 100.0 100 Neutrophils % (Manual) 58 37.0-80.0 Band Neutrophils % (Manual) 0 Lymphocytes % (Manual) 26 10.0-50.0 Monocytes % (Manual) 12 0-12 Eosinophils % (Manual) 4 0-7 Basophils % (Manual) 0 0.0-2.0 Metamyelocytes % (manual) 0 Myelocytes % (Manual) 0 Promyelocytes % (Manual) 0 Blast Cells % (Manual) 0 Reactive Lymphocytes 0 Platelet Estimate [place] Large Platelets Few Sodium Level 143 136-145 mmol/L Potassium Level 4.3 3.5-5.1 mmol/L Chloride Level 108 H 98-107 mmol/L Carbon Dioxide Level 24 20-31 mmol/L Anion Gap 11 5-15 Blood Urea Nitrogen 20 9-23 mg/dL Creatinine 1.34 H 0.700-1.30 mg/dL Glomerular Filtration Rate Calc 62 >90 mL/min BUN/Creatinine Ratio 14.9 10.0-20.0 Serum Glucose 70 L 74-106 mg/dL Lactic Acid Level 1.6 0.4-2.0 mmol/L Calcium Level 9.2 8.7-10.4 mg/dL Total Bilirubin 1.4 H 0.2-1.0 mg/dL Aspartate Amino Transferase (AST) 32 13-40 U/L Alanine Aminotransferase (ALT) 28 7-40 U/L Alkaline Phosphatase 139 H 46-116 U/L Total Protein 6.7 5.7-8.2 g/dL Albumin 3.9 3.2-4.8 g/dL Lipase 41 12-53 U/L 59-year-old male presents here with abdominal pain. Patient states earlier today began to have crampy abdominal pain. He has had a known umbilical hernia x2 weeks and thought it was related to that. On my examination his hernia is easily reducible but he does report pain. Blood work has been done with a normal BC. CMP does demonstrate creatinine of 1.34. Elevated bilirubin of 1.4 elevated phos of 139. Patient does endorse having liver disease. At Time he is supposed to be on Lasix and metoprolol but states he has ran out x2 weeks. Requesting a refill which I have given him. I have ordered a CT abdomen and pelvis with IV contrast. CT abdomen pelvis has been done which does demonstrate significant ascites. However abdomen is soft nontender doubt spontaneous bacterial peritonitis. WBC count is within normal limits. At this time I will be discharging the patient home. Advised him to follow up with his PCP in 2-3 days and return to the ER if symptoms worsen or persist. Patient agreeable. Time of 1ST Reevaluation: 15:37 Reevaluation 1ST: Unchanged Patient Education/Counseling: Diagnosis, Treatment, Prognosis Family Education/Counseling: No Family Present SEPSIS Sepsis Screen Date sepsis recognized/suspect: Apr 13, 2025 Time Sepsis recognized/suspect: 8 Recent Procedure: No On Antibiotic Therapy: No Respiratory Rate >20: No Heart Rate >90: No Temp<36 C (96.8 F) or >38.3 C: No SBP <90 or MAP <65 mmHG: No New Acute Mental Status Change: No Is the patient on CPAP, BIPAP,: No Physician Orders Ct Ab Pel With Iv Con Only (04/13/25 12:50) Vital Signs Date Time Temp Pulse Resp B/P (MAP) Pulse Ox O2 Delivery O2 Flow Rate FiO2 04/13/25 12:14 97.6 68 18 145/96 96 97.6 Laboratory Tests Test 04/13/25 12:59 Lactic Acid Level 1.6 mmol/L (0.4-2.0) White Blood Count 5.5 10^3/uL (4.4-10.8) Departure 1 Departure Time of Disposition: 16:17 Impression: Primary Impression: Umbilical hernia Qualified Codes: K42.9 - Umbilical hernia without obstruction or gangrene Additional Impressions: Fluid overload Qualified Codes: E87.70 - Fluid overload, unspecified Abdominal ascites Qualified Codes: K70.31 - Alcoholic cirrhosis of liver with ascites; K72.90 - Hepatic failure, unspecified without coma Disposition: 01 HOME / SELF CARE / HOMELESS Condition: Serious Additional Instructions: Return to the ER if symptoms worsen or persist. If the hernia comes stuck in does not easily go back into its normal place please come back to the ER immediately. e-Prescriptions Furosemide (Lasix) 40 Mg Tab 40 MG PO DAILY for 30 Days, #30 TAB Prov: ISHA CHOUDHARY MD 04/13/25 Metoprolol Succinate (Metoprolol Succinate Er) 50 Mg Tab 1 TAB PO DAILY, #30 TAB 5 Refills Prov: ISHA CHOUDHARY MD 04/13/25 Critical Care Note Critical Care Time?: No Stability Stability form required: No I personally scribed for ISHA CHOUDHARY MD ([email or web address]) on 04/13/25 at 13:06. Electronically submitted by Kayla Huang ([facility]). I personally scribed for ISHA CHOUDHARY MD ([facility]) on 04/13/25 at 15:38. Electronically submitted by Kayla Huang ([facility]). I personally scribed for ISHA CHOUDHARY MD ([facility]) on 04/13/25 at 15:45. Electronically submitted by Kayla Huang ([facility]). ISHA CHOUDHARY MD Apr 13, 2025 13:06
[2025-04-13 13:28] LABS: Hematocrit 39.8 % (41.0-53.0); Hemoglobin 13.1 g/dL (13.5-17.5); Mean Corpuscular Hemoglobin 30.0 pg (28.0-32.0); Mean Corpuscular Volume 91.4 fL (80.0-100.0)
[2025-04-13 13:38] LABS: Alanine Aminotransferase 28 U/L (7-40); Albumin 3.9 g/dL (3.2-4.8); Anion Gap 11 (5-15); BUN/Creatinine Ratio 14.9 (10.0-20.0); Blood Urea Nitrogen 20 mg/dL (9-23); Calcium 9.2 mg/dL (8.7-10.4); Carbon Dioxide 24 mmol/L (20-31); Lipase 41 U/L (12-53); Potassium 4.3 mmol/L (3.5-5.1); Sodium 143 mmol/L (136-145); Total Protein 6.7 g/dL (5.7-8.2)
[2025-04-13 13:52] LABS: Alkaline Phosphatase 139 U/L (46-116); Bilirubin, Total 1.4 mg/dL (0.2-1.0); Chloride 108 mmol/L (98-107); Glucose 70 mg/dL (74-106)
[2025-04-13 14:46] LABS: Total Cells Counted 100.0 (100)
[2025-04-13] MEDS: IOHEXOL 300 MG/ML 100ML BOTTLE IJ ONE (15:00)
[2025-04-13] MEDS ORDERED: FURO1TAB31 PO (15:40)
[2025-04-13] MEDS ORDERED: METO-289 PO (15:40)
--- NOTE | 2025-04-13 15:58 | DVH ---
EXAM: CT CT AB PEL WITH IV CON ONLY HISTORY: ro Incarcerated strangulated hernia TECHNIQUE: Volumetric multidetector CT images of the abdomen and pelvis were obtained after the administration of intravenous contrast. All CT scans at this facility use dose modulation, iterative reconstruction, and/or weight based dosing when appropriate to reduce radiation dose to as low as reasonably achievable. COMPARISON: CT CT AB PEL WITH IV CON ONLY on DOS: 02/21/25 FINDINGS: [LOWER CHEST]: Prior healed left posterior rib fractures. Small radiopaque density of the left hemidiaphragm which may be related to prior injury. [LIVER]: Normal hepatic size without suspicious focal lesion. [GALLBLADDER AND BILIARY TREE]: No cholelithiasis. [SPLEEN]: Unremarkable. [PANCREAS]: Unremarkable. [ADRENAL GLANDS]: Unremarkable [KIDNEYS]: No hydronephrosis. No nephroureterolithiasis. No suspicious focal lesion. [BLADDER]: Minimal circumferential bladder wall thickening. [REPRODUCTIVE ORGANS]: Unremarkable. [BOWEL/MESENTERY]: Fat and bowel containing left inguinal hernia without bowel obstruction. Hernia contains sigmoid colon. Fat and fluid containing umbilical hernia. Stomach is normal. No CT evidence of bowel obstruction. [ASCITES]: Medium volume ascites. [LYMPHADENOPATHY]: No pathologically enlarged lymph nodes by CT size criteria [VASCULATURE]: No aneurysmal dilatation. [ABDOMINAL WALL]: Diffuse body wall edema. [MUSCULOSKELETAL]: No acute fracture or aggressive focal osseous lesion. Multifocal degenerative change of the visualized spine. IMPRESSION: 1. Medium volume ascites. 2. Fat and bowel containing left inguinal hernia without bowel obstruction. 3. Fat and fluid containing umbilical hernia.
[2025-04-13] MEDS: MORPHINE SULFATE 4 MG/ML SYR/VIAL IM ONE (17:56)
[2025-04-13 18:45] VITALS: BP 149/94; PULSE 88; RESP 18
== END 2025-04-13 18:46 | disposition home or self-care (01) ==
LOC: ER 12:03
DX: K42.9 Umbilical hernia without obstruction or gangrene (principal); K70.31 Alcoholic cirrhosis of liver with ascites; E87.70 Fluid overload, unspecified; Z79.899 Other long term (current) drug therapy; Z88.1 Allergy status to other antibiotic agents
CPT/HCPCS: 36415; 74177; 80053; 83605; 83690; 85007; 85027; 96372; 99285; J2270; Q9967

== ENCOUNTER 2025-04-16 11:01 | Inpatient (IN) | payer MEDICAID ==
[~2025-04-16] VITALS: Ht 170.2 cm; Wt 88.0 kg
[~2025-04-16 11:01] MED LIST changes: +METO-289 PO
--- NOTE | 2025-04-16 11:29 | ECG ---
[facility] Test Date: 2025-04-16 Test Time: 11:14:09 Pat Name: YASMEEN LUCIANO Department: ER Room: 0245 Gender: M [employer] Player: GASTON : 1965 Requested By: LONG RIOS Order Number: [id number] Reading MD: Josiah Rollins Measurements Intervals [place] Rate: 81 P: 69 PA: 140 QRS: -134 QRSD: 159 T: -3 QT: 444 QTc: 516 Interpretive Statements Sinus rhythm Right bundle branch block Electronically Signed On 04-18-2025 19:45:31 PST by Josiah Rollins Please click the below link to view image of tracing.
--- NOTE | 2025-04-16 11:50 | ED.PDOC ---
HPI Allergic reaction HPI Comments 59 y/o M, presents to the ED for CC of allergic reaction. Patient states, he recently took Metoprol and Lasix and another unknown OTC medication and then developed facial swelling onset, x1day ago. States he has taken his lasix and metop before, no reaction to them. Also endorses leg swelling. Patient denies shortness of breath, inability to swallow, throat swelling, rash, or pruritus. No other symptoms or modifying factors are present at this time. Chief Complaint: Allergic Reaction Time Seen by MD: 11:20 Reviewed Notes: Nurses Notes, Medications, Allergies Allergies: Coded Allergies: Ciprofloxacin (Verified Allergy, Unknown, 02/21/25) Home Meds Active Scripts Furosemide (Lasix) 40 Mg Tab, 40 MG PO DAILY for 30 Days, #30 TAB Prov:ISHA CHOUDHARY MD 04/13/25 Metoprolol Succinate (Metoprolol Succinate Er) 50 Mg Tab, 1 TAB PO DAILY, #30 TAB 5 Refills Prov:ISHA CHOUDHARY MD 04/13/25 Cephalexin (KEFLEX CAPSULE) 250 Mg Cp, 1 CAP PO QID for 5 Days, #20 CAP Prov:PAWAN QUIROZ RESIDENT 02/24/25 Furosemide (Lasix) 40 Mg Tab, 40 MG PO DAILY for 30 Days, #30 TAB Prov:PAWAN QUIROZ RESIDENT 02/24/25 Information Source: Patient Mode of Arrival: Ambulatory Severity: Moderate Rash: None SOB: None Difficulty swallowing: None Pruritus: None Location: Face Exposed to: Medication Developed: Facial Swelling History of: None Modyifying Factors: None Associated Sign and Symptoms: None Past Medical History PAST MEDICAL HISTORY: UTI'S Surgical History: Denies all surgeries Family History Family History: Reviewed,noncontributory to illness Social History Smoker: Non-Smoker Alcohol: Occasionally Drugs: Marijuana Lives In: Home Constitutional: denies: chills, diaphoresis, fatigue, fever, malaise, sweats, weakness, others EENTM: denies: blurred vision, double vision, ear bleeding, ear discharge, ear drainage, ear pain, ear ringing, eye pain, eye redness, hearing loss, mouth pain, mouth swelling, nasal discharge, nose bleeding, nose congestion, nose pain, photophobia, tearing, throat pain, throat swelling, voice changes, others Respiratory: denies: cough, hemoptysis, orthopnea, SOB at rest, shortness of breath, SOB with excertion, stridor, wheezing, others Cardiovascular: denies: chest pain, dizzy spells, diaphoresis, Dyspnea on exertion, edema, irregular heart beat, left arm pain, lightheadedness, palpitations, PND, syncope, others Gastrointestinal: denies: abdomen distended, abdominal pain, blood streaked bowels, constipated, diarrhea, dysphagia, difficulty swallowing, hematemesis, melena, nausea, poor appetite, poor fluid intake, rectal bleeding, rectal pain, vomiting, others Genitourinary: denies: burning, dysuria, flank pain, frequency, hematuria, incontinence, penile discharge, penile sore, pain, testicle pain, testicle swelling, urgency, others Neurological: denies: dizziness, fainting, headache, left sided numbness, left sided weakness, numbness, paresthesia, pre-existing deficit, right sided numbness, right sided weakness, seizure, speech problems, tingling, tremors, weakness, others Musculoskeletal: denies: back pain, gout, joint pain, joint swelling, muscle pain, muscle stiffness, neck pain, others Integumetry: denies: bruises, change in color, change in hair/nails, dryness, laceration, lesions, lumps, rash, wounds, others Allergic/Immunocompromised: denies: Difficulty Healing, Frequent Infections, Hives, Itching, others Hematologic/Lymphatic: denies: anemia, blood clots, easy bleeding, easy bruising, swollen glands, others Endocrine: denies: excessive hunger, excessive sweating, excessive thirst, excessive urination, flushing, intolerance to cold, intolerance to heat, unexplained weight gain, unexplained weight loss, others Psychiatric: denies: anxiety, bipolar disorder, depression, hopeless, panic disorder, schizophrenia, sleepless, suicidal, others All Other Systems: Reviewed and Negative Physical Exam General Appearance: No Apparent Distress, Normal HEENT: Normal ENT Inspection, Pharynx Normal, Other (bilateral periorbital swelling, no oropharynx swelling) Neck: Full Range of Motion, Non-Tender, Normal, Normal Inspection Respiratory: Chest Non-Tender, Lungs Clear, No Accessory Muscle Use, No Respiratory Distress, Normal Breath Sounds Cardiovascular: No Edema, No Murmur, No Gallop, Normal Peripheral Pulses, Regular Rate/Rhythm Breast Exam: Deferred Gastrointestinal: No Organomegaly, Non Tender, No Pulsatile Mass, Normal Bowel Sounds, Soft Genitalia: Deferred Pelvic: Deferred Rectal: Deferred Extremities: Leg edema (1+), No calf tenderness, Normal capillary refill, Normal inspection, Normal range of motion, Non-tender Musculoskeletal : Apperance: Normal Neurologic: Alert, inside sales engineer II-XII nml as Tested, No Motor Deficits, Normal Affect, Normal Mood, No Sensory Deficits Cerebellar Function: Normal Reflexes: Normal Skin: Dry, Normal Color, Warm Lymphatic: No Adenopathy Was a procedure done? Was a procedure done?: No EKG EKG : Pulse Rate (adult): 81 Cardiac Rhythm: NSR Block: RBBB Comments No acute evidence of ischemia, no STEMI. Differential diagnosis (all) Differential Diagnosis: Drug Reaction Other Differential Diagnosis CHF exacerbation, volume overload, pneumonia, pneumothorax, pulmonary embolism, ACS, allergic reaction, anaphylaxis, periorbital cellulitis, orbital cellulitis X-Ray, Labs, Meds, VS Vital Signs Date Time Temp Pulse Resp B/P (MAP) Pulse Ox O2 Delivery O2 Flow Rate FiO2 04/16/25 13:54 78 18 97 Room Air 04/16/25 13:54 98.1 78 18 125/97 (106) 97 98.1 04/16/25 11:14 81 04/16/25 11:03 97.2 77 20 125/84 96 97.2 Lab Test 04/16/25 12:42 04/16/25 11:57 Range/Units Troponin I High Sensitivity 24 24 </=54 ng/L White Blood Count 5.8 4.4-10.8 10^3/uL Red Blood Count 4.60 4.5-5.90 10^6/uL Hemoglobin 13.4 L 13.5-17.5 g/dL Hematocrit 42.3 41.0-53.0 % Mean Corpuscular Volume 91.8 80.0-100.0 fL Mean Corpuscular Hemoglobin 29.1 28.0-32.0 pg Mean Corpuscular Hemoglobin Concent 31.7 L 32.0-36.0 g/dL Red Cell Distribution Width 18.8 H 11.8-14.3 % Platelet Count 212 140-450 10^3/uL Mean Platelet Volume 9.3 6.9-10.8 fL Neutrophils (%) (Auto) 60.4 37.0-80.0 % Lymphocytes (%) (Auto) 21.3 10.0-50.0 % Monocytes (%) (Auto) 14.8 H 0.0-12.0 % Eosinophils (%) (Auto) 2.2 0.0-7.0 % Basophils (%) (Auto) 1.3 0.0-2.0 % Neutrophils # (Auto) 3.5 1.6-8.6 10 ^3/uL Lymphocytes # (Auto) 1.2 0.4-5.4 10 ^3/uL Monocytes # (Auto) 0.9 0-1.3 10 ^3/uL Eosinophils # (Auto) 0.1 0-0.8 10 ^3/uL Basophils # (Auto) 0.1 0-0.2 10 ^3/uL Nucleated Red Blood Cells 0.1 % Sodium Level 143 136-145 mmol/L Potassium Level 4.2 3.5-5.1 mmol/L Chloride Level 110 H 98-107 mmol/L Carbon Dioxide Level 24 20-31 mmol/L Anion Gap 9 5-15 Blood Urea Nitrogen 24 H 9-23 mg/dL Creatinine 1.68 H 0.700-1.30 mg/dL Glomerular Filtration Rate Calc 47 >90 mL/min BUN/Creatinine Ratio 14.3 10.0-20.0 Serum Glucose 110 H 74-106 mg/dL Calcium Level 8.4 L 8.7-10.4 mg/dL B-Type Natriuretic Peptide 1302.59 0-100 pg/mL Current Medications Medications (Trade) Dose Ordered Sig/Jolynn Route Start Time Stop Time Status Last Admin Diphenhydramine HCl (Benadryl Injection) 25 mg ONCE ONCE IV 04/16/25 11:45 04/16/25 11:46 DC 04/16/25 12:25 Prednisone 40 mg ONCE ONCE PO 04/16/25 11:45 04/16/25 11:46 DC 04/16/25 12:25 Famotidine (Pepcid Tablet) 20 mg ONCE ONCE PO 04/16/25 11:45 04/16/25 11:46 DC 04/16/25 12:25 [facility] [id number] [place] [id number] Ph: [phone] DIAGNOSTIC IMAGING Diagnostic Imaging Report : [id number] Signed PATIENT: YASMEEN LUCIANO ACCT: [id number] UNIT: [id number] : 1965 LOC: ER ROOM / BED: / AGE / SEX: 59 / M ADM STATUS: REG ER SERVICE 1141 ORDERING PHYSICIAN: LONG RIOS MD PROCEDURE(s): CXRP - CHEST PORTABLE REASON: cp ORDER NUMBER(s): [id number], ACCESSION NUMBER(s): [id number] CHEST RADIOGRAPH Indication: cp Technique: Single frontal view of the chest was obtained COMPARISON: XY CHEST PORTABLE on DOS: 02/22/25 FINDINGS: Lines and Tubes: None Lungs: Clear Pleura: No effusion.No pneumothorax. Cardiomediastinal contours: Cardiomegaly. Bones: Unremarkable IMPRESSION: Cardiomegaly with clear lungs. ATED BY: PATRICIO DELVALLE MD DICTATED DATE/TIME: 04/16/254 SIGNED BY: PATRICIO DELVALLE MD SIGNED DATE/TIME: 04/16/251213 CC: X-Ray, Labs, Meds, VS Comment 59-year-old male here today with a concern for allergic reaction with a evidence of periorbital swelling. Does not meet criteria for anaphylaxis at this time given no involvement of other organ system or hypotension. Patient also with a evidence of volume overload with the elevated BNP and pedal edema. Plan made to admit the patient for further management of his allergic reaction and volume overload. Patient was given Pepcid, steroids, and Benadryl for his allergic reaction which resulted in improvement in his symptoms and was given Lasix for his volume overload which he states he has had in the past with no allergic reaction symptoms. Images Reviewed?: Images reviewed and evaluated by me Time of 1ST Reevaluation: 11:50 Reevaluation 1ST: Unchanged Time of 2ND Reevaluation: 15:18 Reevaluation 2ND: Improved Patient Education/Counseling: Diagnosis, Treatment Family Education/Counseling: No Family Present SEPSIS Sepsis Screen Date sepsis recognized/suspect: Apr 16, 2025 Time Sepsis recognized/suspect: 1106 Recent Procedure: No On Antibiotic Therapy: No Respiratory Rate >20: No Heart Rate >90: No Temp<36 C (96.8 F) or >38.3 C: No SBP <90 or MAP <65 mmHG: No New Acute Mental Status Change: No Is the patient on CPAP, BIPAP,: No Physician Orders Chest Portable (04/16/25 11:41) Troponin-I Hs (04/16/25 14:41) Vital Signs Date Time Temp Pulse Resp B/P (MAP) Pulse Ox O2 Delivery O2 Flow Rate FiO2 04/16/25 13:54 78 18 97 Room Air 04/16/25 13:54 98.1 78 18 125/97 (106) 97 98.1 04/16/25 11:14 81 04/16/25 11:03 97.2 77 20 125/84 96 97.2 Laboratory Tests Test 04/16/25 11:57 White Blood Count 5.8 10^3/uL (4.4-10.8) Medications Medications Dose Ordered Sig/Jolynn Route Start Time Stop Time Status Last Admin Dose Admin Diphenhydramine HCl 25 mg ONCE ONCE IV 04/16/25 11:45 04/16/25 11:46 DC 04/16/25 12:25 Famotidine 20 mg ONCE ONCE PO 04/16/25 11:45 04/16/25 11:46 DC 04/16/25 12:25 Prednisone 40 mg ONCE ONCE PO 04/16/25 11:45 04/16/25 11:46 DC 04/16/25 12:25 Departure 1 Departure Time of Disposition: 15:18 Impression: Primary Impression: Fluid overload Additional Impressions: Allergic reaction History of CHF (congestive heart failure) Disposition: ADMITTED INPATIENT Admit to: Tele Condition: Guarded Critical Care Note Critical Care Time?: Yes (35 min-critical care time only) Stability Stability form required: No Heart Score Heart Score: Heart Score Response (Comments) Value History N/A 0 EKG N/A 0 Age N/A 0 Risk Factors N/A 0 Troponin N/A 0 Total 0 I personally scribed for LONG RIOS MD ([email or web address]) on 04/16/25 at 11:50. Electronically submitted by Avelina Johnson ([email or web address]). I personally scribed for LONG RIOS MD ([email or web address]) on 04/16/25 at 11:54. Electronically submitted by Avelina Johnson ([email or web address]). I personally scribed for LONG RIOS MD ([email or web address]) on 04/16/25 at 12:39. Electronically submitted by Avelina Johnson ([email or web address]). I personally scribed for LONG RIOS MD ([email or web address]) on 04/16/25 at 12:39. Electronically submitted by Avelina Johnson ([email or web address]). LONG RIOS MD Apr 16, 2025 11:50
[2025-04-16 12:14] LABS: Hematocrit 42.3 % (41.0-53.0); Hemoglobin 13.4 g/dL (13.5-17.5); Mean Corpuscular Hemoglobin 29.1 pg (28.0-32.0); Mean Corpuscular Volume 91.8 fL (80.0-100.0); Nucleated Red Blood Cells % 0.1 %
--- NOTE | 2025-04-16 12:17 | DVH ---
CHEST RADIOGRAPH Indication: cp Technique: Single frontal view of the chest was obtained COMPARISON: XY CHEST PORTABLE on DOS: 02/22/25 FINDINGS: Lines and Tubes: None Lungs: Clear Pleura: No effusion.No pneumothorax. Cardiomediastinal contours: Cardiomegaly. Bones: Unremarkable IMPRESSION: Cardiomegaly with clear lungs.
[2025-04-16 12:23] LABS: Potassium 4.2 mmol/L (3.5-5.1); Sodium 143 mmol/L (136-145)
[2025-04-16 12:24] LABS: Anion Gap 9 (5-15); Carbon Dioxide 24 mmol/L (20-31)
[2025-04-16 12:25] LABS: Calcium 8.4 mg/dL (8.7-10.4); Chloride 110 mmol/L (98-107)
[2025-04-16] MEDS: predniSONE 20 MG TAB PO ONE (12:25)
[2025-04-16] MEDS: FAMOTIDINE 20 MG TAB PO ONE (12:25)
[2025-04-16] MEDS: diphenhydrAMINE HCL 50 MG/1 ML VL IV ONE (12:25)
[2025-04-16 12:29] LABS: BUN/Creatinine Ratio 14.3 (10.0-20.0)
[2025-04-16 12:30] LABS: Blood Urea Nitrogen 24 mg/dL (9-23); Glucose 110 mg/dL (74-106)
[2025-04-16] MEDS: FUROSEMIDE 20 MG/2 ML VIAL IV ONE (15:55)
[2025-04-16] MEDS ORDERED: DOCUSATE SOD 100 MG CAP PO PRN (16:30)
[2025-04-16] MEDS ORDERED: ONDANSETRON HCL 4 MG/2 ML VIAL IV PRN (16:30)
--- NOTE | 2025-04-16 17:18 | DVHHP2 ---
History of Present Illness Reason for Visit: Allergic reaction History of Present Illness Luiz Duncan is a 59-year-old male with past medical history of hypertension, CHF, and alcoholic liver cirrhosis, who came to the hospital for allergic reaction. Patient was seen in the ER on 04/13/2025 for his inguinal hernia and needing his home medications refilled. He states he took his metoprolol, Lasix, and over the counter supplement for the last 3 days. He noticed slight facial swelling the first day, the next day it seemed a little worse, then this morning he took his medications, went to sleep and when he woke up he was having difficulties opening his eyes due to the swelling. He states he was also having shortness of breath, prompting him to come to the hospital. Cardiovascular: HTN Past Surgical History: None ALCOHOL: heavy (quite 2months ago) Drugs: Other (Methamphetamines, quite 6 weeks ago) Lives: with Family Domestic Violence: Neg Review of Systems Constitutional: Yes: Other (facial swelling); No: Fever, Chills, Sweats, Weakness, Malaise Eyes: No: Pain, Vision change, Conjunctivae inflammation, Eyelid inflammation, Other, Redness ENT: No: Ear pain, Ear discharge, Nose pain, Nose discharge, Nose congestion, Mouth pain, Mouth swelling, Throat pain, Throat swelling, Other Respiratory: No: Cough, Dry, Shortness of breath, SOB with excertion, Wheezing, Hemoptysis, Pleuritic Pain, Sputum, Wheezing, Other Cardiovascular: Edema (bilateral legs); No: Chest Pain, Palpitations, Orthopnea, Paroxysmal Noc. Dyspnea, Lt Headedness, Other Gastrointestinal: No: Nausea, Vomiting, Abdominal Pain, Diarrhea, Constipation, Melena, Hematochezia, Other Genitourinary: No Dysuria, No Frequency, No Incontinence, No Hematuria, No Retention, No Other Musculoskeletal: No: other, neck pain, shoulder pain, arm pain, back pain, hand pain, leg pain, foot pain Skin: No: Rash, Lesions, Jaundice, Bruising, Other Neurological: No: Weakness, Numbness, Incoordination, Change in speech, Confusi on, Seizures, Other Allergies: Coded Allergies: Ciprofloxacin (Verified Allergy, Unknown, 02/21/25) Exam Vital Signs Vital Signs Date Time Temp Pulse Resp B/P (MAP) Pulse Ox O2 Delivery O2 Flow Rate FiO2 04/16/25 15:55 140/94 04/16/25 15:25 98.2 79 22 97 98.2 04/16/25 13:54 Room Air General Appearance: Alert, Oriented X3, Cooperative, moderate distress, Other (facial swelling) HEENT: Atraumatic, PERRLA, Mucous membr. moist/pink Respiratory: Clear to auscultation, Normal air movement Cardiovascular: Regular rate, Normal S1, Normal S2, No murmurs Abdominal: Normal bowel sounds, Soft, No tenderness, No hepatospenomegaly Extremities: No clubbing, No cyanosis, No edema, Normal pulses, No tenderness/swelling Skin: No rashes, No breakdown, No significant lesion Neuro: Normal gait, Normal speech, Strength at 5/5 X4 ext Psych/Mental Status: Mental status NL, Mood NL Labs/Xrays Labs Test 04/16/25 15:16 04/16/25 11:57 Range/Units Troponin I High Sensitivity 23 </=54 ng/L White Blood Count 5.8 4.4-10.8 10^3/uL Red Blood Count 4.60 4.5-5.90 10^6/uL Hemoglobin 13.4 L 13.5-17.5 g/dL Hematocrit 42.3 41.0-53.0 % Mean Corpuscular Volume 91.8 80.0-100.0 fL Mean Corpuscular Hemoglobin 29.1 28.0-32.0 pg Mean Corpuscular Hemoglobin Concent 31.7 L 32.0-36.0 g/dL Red Cell Distribution Width 18.8 H 11.8-14.3 % Platelet Count 212 140-450 10^3/uL Mean Platelet Volume 9.3 6.9-10.8 fL Neutrophils (%) (Auto) 60.4 37.0-80.0 % Lymphocytes (%) (Auto) 21.3 10.0-50.0 % Monocytes (%) (Auto) 14.8 H 0.0-12.0 % Eosinophils (%) (Auto) 2.2 0.0-7.0 % Basophils (%) (Auto) 1.3 0.0-2.0 % Neutrophils # (Auto) 3.5 1.6-8.6 10 ^3/uL Lymphocytes # (Auto) 1.2 0.4-5.4 10 ^3/uL Monocytes # (Auto) 0.9 0-1.3 10 ^3/uL Eosinophils # (Auto) 0.1 0-0.8 10 ^3/uL Basophils # (Auto) 0.1 0-0.2 10 ^3/uL Nucleated Red Blood Cells 0.1 % Sodium Level 143 136-145 mmol/L Potassium Level 4.2 3.5-5.1 mmol/L Chloride Level 110 H 98-107 mmol/L Carbon Dioxide Level 24 20-31 mmol/L Anion Gap 9 5-15 Blood Urea Nitrogen 24 H 9-23 mg/dL Creatinine 1.68 H 0.700-1.30 mg/dL Glomerular Filtration Rate Calc 47 >90 mL/min BUN/Creatinine Ratio 14.3 10.0-20.0 Serum Glucose 110 H 74-106 mg/dL Calcium Level 8.4 L 8.7-10.4 mg/dL B-Type Natriuretic Peptide 1302.59 0-100 pg/mL CHEST RADIOGRAPH FINDINGS: Lines and Tubes: None Lungs: Clear Pleura: No effusion.No pneumothorax. Cardiomediastinal contours: Cardiomegaly. Bones: Unremarkable IMPRESSION: Cardiomegaly with clear lungs. SEPSIS Sepsis Screen Date sepsis recognized/suspect: Apr 16, 2025 Time Sepsis recognized/suspect: 1106 Recent Procedure: No On Antibiotic Therapy: No Respiratory Rate >20: No Heart Rate >90: No Temp<36 C (96.8 F) or >38.3 C: No SBP <90 or MAP <65 mmHG: No New Acute Mental Status Change: No Is the patient on CPAP, BIPAP,: No Physician Orders Chest Portable (04/16/25 11:41) Admit (04/16/25 16:18) Code Status (04/16/25 16:18) 2 Gm Sodium Diet (04/16/25 Dinner) Sodium Chloride Lock (Saline Lock Ns) (04/16/25 22:00) Hydrocodone-Acet 5/325mg Tab ([place] 5/32 (04/16/25 16:30) Ondansetron Hcl (Zofran) (04/16/25 16:30) Docusate Sodium Capsule (Colace Capsule) (04/16/25 16:30) Complete Blood Count (04/17/25 04:00) Comprehensive Metabolic Panel (04/17/25 04:00) Condition: Serious (04/16/25 16:18) Acetaminophen Tablet (Tylenol Tablet) (04/16/25 16:30) Diphenhydramine Capsule (Benadryl Capsul (04/16/25 16:30) Famotidine Tablet (Pepcid Tablet) (04/16/25 22:00) Furosemide Injection (Lasix Injection) (04/16/25 18:00) Prednisone Tablet (04/17/25 10:00) Daily Weight (04/16/25 16:18) Strict I&O (04/16/25 ) Maintain Fluid Restrictions QSHIFT (04/16/25 16:18) Vital Signs Date Time Temp Pulse Resp B/P (MAP) Pulse Ox O2 Delivery O2 Flow Rate FiO2 04/16/25 15:55 140/94 04/16/25 15:25 98.2 79 22 140/94 (109) 97 98.2 04/16/25 15:18 81 04/16/25 13:54 78 18 97 Room Air 04/16/25 13:54 98.1 78 18 125/97 (106) 97 98.1 04/16/25 11:14 81 04/16/25 11:03 97.2 77 20 125/84 96 97.2 Laboratory Tests Test 04/16/25 11:57 White Blood Count 5.8 10^3/uL (4.4-10.8) Medications Medications Dose Ordered Sig/Jolynn Route Start Time Stop Time Status Last Admin Dose Admin Diphenhydramine HCl 25 mg ONCE ONCE IV 04/16/25 11:45 04/16/25 11:46 DC 04/16/25 12:25 25 MG Famotidine 20 mg ONCE ONCE PO 04/16/25 11:45 04/16/25 11:46 DC 04/16/25 12:25 20 MG Furosemide 20 mg ONCE ONCE IV 04/16/25 15:15 04/16/25 15:16 DC 04/16/25 15:55 20 MG Prednisone 40 mg ONCE ONCE PO 04/16/25 11:45 04/16/25 11:46 DC 04/16/25 12:25 40 MG Assessment/Plan Assessment/Plan Assessment: Allergic reaction, Alcoholic liver cirrhosis, Fluid overload, Inguinal hernia, Plan: Admit to Med-Surg, Benadryl PRN, Famotidine scheduled, Prednisone scheduled, IV Lasix BID, Manage/Monitor electrolytes closely, Home medications held at this time, Plan discussed with: Patient My Orders Orders - JUDE KAUR Procedure Category Date Status Time Admit ADMIT 04/16/25 Transmitted 16:18 Code Status CODE 04/16/25 Transmitted 16:18 2 Gm Sodium Diet DIET 04/16/25 Transmitted Dinner Sodium Chloride Lock PHA 04/16/25 Transmitted (Saline Lock Ns) 22:00 Hydrocodone-Acet PHA 04/16/25 Transmitted 5/325mg Tab ([place] 16:30 Ondansetron Hcl PHA 04/16/25 Transmitted (Zofran) 16:30 Docusate Sodium PHA 04/16/25 Transmitted Capsule (Colace 16:30 Complete Blood Count LAB 04/17/25 Verified 04:00 Comprehensive LAB 04/17/25 Verified Metabolic Panel 04:00 Condition: Serious CAREY 04/16/25 Transmitted 16:18 Acetaminophen Tablet PHA 04/16/25 Transmitted (Tylenol Tablet) 16:30 Diphenhydramine PHA 04/16/25 Transmitted Capsule (Benadryl 16:30 Famotidine Tablet PHA 04/16/25 Transmitted (Pepcid Tablet) 22:00 Furosemide Injection PHA 04/16/25 Transmitted (Lasix Injection) 18:00 Prednisone Tablet PHA 04/17/25 Transmitted 10:00 Daily Weight CAREY 04/16/25 Transmitted 16:18 Strict I&O ED NURSING 04/16/25 Transmitted Maintain Fluid CAREY 04/16/25 Transmitted Restrictions 16:18 Date of Service: Apr 16, 2025 Billing Provider: JUDE KAUR Common Visit Codes: [id number] INP/OBS CARE (MOD) JUDE KAUR Apr 16, 2025 17:18
[2025-04-16] MEDS: SODIUM CHLOR 0.9% PF (SALINE LOCK) 10ML VIAL/SYR IV SCH (21:33)
[2025-04-16] MEDS: FUROSEMIDE 40 MG/4 ML VIAL IV SCH (21:49)
[2025-04-16] MEDS: FAMOTIDINE 20 MG TAB PO SCH (21:51)
[2025-04-16] MEDS: ACETAMINOPHEN 325 MG TAB PO PRN (23:49)
[2025-04-17 00:17] LABS: Amphetamine Screen, Urine Neg (NEGATIVE); Barbiturate Scree,Urine Neg (NEGATIVE); Benzodiazephine Screen, Urine Neg (NEGATIVE); Cannabinoid Screen, Urine Neg (NEGATIVE); Cocaine Screen, Urine Neg (NEGATIVE); Opiate Scree,Urine Neg (NEGATIVE); Phencyclidine Screen, Urine Neg (NEGATIVE)
[2025-04-17 00:32] LABS: Urine Protein, UAD Negative (Negative)
[2025-04-17 01:00] VITALS: BP 154/103; PULSE 83; RESP 20; TEMP 97.6; O2SAT 95
[2025-04-17 05:00] VITALS: BP 152/95; PULSE 90; RESP 19; TEMP 97.5; O2SAT 96
[2025-04-17 07:33] LABS: Hematocrit 39.9 % (41.0-53.0); Hemoglobin 13.3 g/dL (13.5-17.5); Mean Corpuscular Hemoglobin 30.1 pg (28.0-32.0); Mean Corpuscular Volume 90.5 fL (80.0-100.0); Nucleated Red Blood Cells % 0.0 %
[2025-04-17 08:01] LABS: Alanine Aminotransferase 16 U/L (7-40); Albumin 4.1 g/dL (3.2-4.8); Alkaline Phosphatase 110 U/L (46-116); Anion Gap 11 (5-15); BUN/Creatinine Ratio 13.2 (10.0-20.0); Blood Urea Nitrogen 14 mg/dL (9-23); Calcium 9.1 mg/dL (8.7-10.4); Carbon Dioxide 24 mmol/L (20-31); Chloride 102 mmol/L (98-107); Potassium 4.2 mmol/L (3.5-5.1); Sodium 137 mmol/L (136-145); Total Protein 6.9 g/dL (5.7-8.2)
[2025-04-17 08:06] VITALS: BP 154/110; PULSE 85; RESP 18; O2SAT 96
[2025-04-17 08:07] LABS: Bilirubin, Total 1.6 mg/dL (0.2-1.0); Glucose 119 mg/dL (74-106)
[2025-04-17 20:00] VITALS: O2SAT 95
[2025-04-17 21:00] VITALS: BP 137/101; PULSE 110; RESP 19; TEMP 98.6; O2SAT 99
[2025-04-18] MEDS: MELATONIN 5 MG TAB PO ONE (01:37)
[2025-04-18 05:00] VITALS: BP 147/114; PULSE 111; RESP 19; TEMP 98.1; O2SAT 96
[2025-04-18 09:06] VITALS: BP 158/126; PULSE 86; RESP 17; TEMP 97.5; O2SAT 99
[2025-04-18 13:00] VITALS: BP 140/108; PULSE 74; RESP 16; TEMP 97.7; O2SAT 98
--- NOTE | 2025-04-18 14:34 | DVHPN2 ---
Reviewed: Care Plan, H&P, Labs, Medications, Previous Orders, Radiology Changes from previous H/P or p: No Changes Eyes: No Pain, No Vision change, No Conjunctivae inflammation, No Eyelid inflammation, No Other, No Redness ENT: No Ear pain, No Ear discharge, No Nose pain, No Nose discharge, No Nose congestion, No Mouth pain, No Mouth swelling, No Throat pain, No Throat swelling, No Other Cardiovascular: Edema Respiratory: No Cough, No Dry, No Shortness of breath, No SOB with excertion, No Wheezing, No Hemoptysis, No Pleuritic Pain, No Sputum, No Other Gastrointestinal: No Nausea, No Vomiting, No Abdominal Pain, No Diarrhea, No Constipation, No Melena, No Hematochezia, No Other Genitourinary: No Dysuria, No Frequency, No Incontinence, No Hematuria, No Retention, No Other Musculoskeletal: No other, No neck pain, No shoulder pain, No arm pain, No back pain, No hand pain, No leg pain, No foot pain Skin: No Rash, No Lesions, No Jaundice, No Bruising, No Other Objective Vitals Vital Signs Date Time Temp Pulse Resp B/P (MAP) Pulse Ox O2 Delivery O2 Flow Rate FiO2 04/18/25 13:00 97.7 74 16 140/108 (119) 98 97.7 04/17/25 20:00 Room Air* 0 21 Intake/Output Intake and Output 04/18/25 07:00 Intake Total 2070 ml Output Total 2400 ml Balance -330 ml Intake Oral 2070 ml Output Urine Total 2400 ml Medications Current Medications Medications Dose Ordered Sig/Jolynn Route Start Time Stop Time Status Last Admin Dose Admin Sodium Chloride 10 ml Q8HR IV 04/16/25 22:00 04/18/25 05:45 10 ML Acetaminophen/ Hydrocodone Bitart 1 tab Q4HP PRN PO 04/16/25 16:30 Ondansetron HCl 4 mg Q4HP PRN IV 04/16/25 16:30 Hold Docusate Sodium 100 mg BIDPRN PRN PO 04/16/25 16:30 Acetaminophen 650 mg Q6HP PRN PO 04/16/25 16:30 04/16/25 23:49 650 MG Diphenhydramine HCl 25 mg Q6HP PRN PO 04/16/25 16:30 Famotidine 40 mg Q12HR PO 04/16/25 22:00 04/18/25 10:13 40 MG Furosemide 40 mg BIDD IV 04/16/25 18:00 04/18/25 05:45 40 MG Prednisone 5 mg DAILY PO 04/17/25 10:00 04/18/25 10:13 5 MG Laboratory Results Laboratory Tests 04/17/25 06:56 Urinalysis Test 04/16/25 21:01 Urine Color Light-yellow (Yellow) Urine Clarity Clear (Clear) Urine pH 5.0 (5.0-9.0) Urine Specific [place] 1.011 (1.001-1.035) Urine Protein Negative (Negative) Urine Ketones Negative (Negative) Urine Blood Negative /uL (Negative) Urine Nitrite Negative (Negative) Urine Bilirubin Negative (Negative) Urine Urobilinogen Normal mg/dL (Negative) Urine Leukocyte Esterase Negative /uL (Negative) Urine RBC 1 /hpf (0 - 3) Urine Microscopic WBC < 1 /HPF (0-3) Urine Squamous Epithelial Cells None seen /hpf (<5) Urine Bacteria None seen /hpf (None Seen) Urine Glucose Normal mg/dL (Normal) Microbiology Microbiology Date/Time Source Procedure Growth Status 04/16/25 23:45 Nose MRSA Screen - Final Complete Labs and/or images reviewed: Labs reviewed by me, Image(s) reviewed by me Assessment/Plan Assessment/Plan Allergic reaction, prednisone Alcoholic liver cirrhosis,: Lasix Fluid overload, Inguinal hernia, Moderate ascites: Consult for radiologist for paracentesis Plan discussed with: Patient Date of Service: Apr 18, 2025 Billing Provider: DARRELL LEW MD Common Visit Codes: [id number] INP/OBS CARE(HIGH) DARRELL LEW MD Apr 18, 2025 14:34
[2025-04-18 15:14] LABS: INR 1.17 (0.9-1.15); Partial Thromboplastin Time 28.1 SEC (24.5-34.5); Prothrombin Time 12.2 sec (9.3-11.8)
--- NOTE | 2025-04-18 15:32 | DVH ---
EXAM: CT CT AB PEL WO CON-NO ORAL OR IV HISTORY: Ascites Comparison Study: CT ABD/PEL on DOS: 05/28/23. 04/13/2025 Exam Date: 04/18/2025 02:54 PM Radiation Dose Information: CT Dose: CTDI volume is 15.55 mGy. Dose-length product is 959.39 mGy*cm TECHNIQUE: Multidetector CT of the abdomen and pelvis was performed. Imaging was performed without IV contrast. Axial, coronal and sagittal multiplanar reformats were obtained from the axial data set by the technologist. FINDINGS: Lack of intravenous contrast compromises evaluation of perfusion and for isodense lesions. Lower chest: Clear. Liver: Unremarkable Biliary system: Unremarkable Spleen: Unremarkable Pancreas: Unremarkable. Adrenals: Unremarkable. Kidneys and ureters: No hydronephrosis. Small hyperdense left renal cyst, likely hemorrhagic/proteinaceous. Bowel: Left inguinal hernia containing loop of sigmoid colon. No bowel obstruction. Bladder: Gallbladder wall thickening. Reproductive organs: No abnormal mass. Lymph nodes: Unremarkable. Peritoneum: Small volume ascites Vessels: Patency not evaluated on this noncontrast study. Bones and soft tissue: No aggressive osseous lesion IMPRESSION: Limited noncontrast study. Small volume ascites. Left inguinal hernia containing loop of distal colon. No obstruction. Mild bladder wall thickening. Correlate for cystitis.
--- NOTE | 2025-04-18 15:40 | DVH ---
Limited Ultrasound - Ascites Evaluation CLINICAL HISTORY: Fluid check for possible paracentesis. COMPARISON: US ABDOMEN LIMITED on DOS: 02/22/25 Technique/Findings/Impression: Limited sonographic evaluation of the abdomen was performed to assess for ascites. There is trace ascites detected. hs:y
[2025-04-18 16:59] VITALS: BP 155/110; PULSE 94; RESP 16; TEMP 98.5; O2SAT 96
[2025-04-18 19:57] VITALS: RESP 18
[2025-04-18 21:00] VITALS: BP 149/106; PULSE 92; RESP 18; TEMP 98.4; O2SAT 99
[2025-04-18] MEDS: HYDROcodone-ACET 5/325MG TAB PO PRN (22:58)
[2025-04-19] MEDS: MELATONIN 5 MG TAB PO ONE (00:14)
[2025-04-19 01:00] VITALS: BP 123/92; PULSE 90; RESP 18; TEMP 97.8; O2SAT 97
[2025-04-19 05:00] VITALS: BP 142/111; PULSE 96; RESP 18; TEMP 97.5; O2SAT 100
[2025-04-19 09:00] VITALS: BP 139/104; PULSE 50; RESP 16; TEMP 97.4; O2SAT 99
--- NOTE | 2025-04-19 09:59 | DVHPN2 ---
Reviewed: Care Plan, H&P, Labs, Medications, Previous Orders, Radiology Changes from previous H/P or p: No Changes Eyes: No Pain, No Vision change, No Conjunctivae inflammation, No Eyelid inflammation, No Other, No Redness ENT: No Ear pain, No Ear discharge, No Nose pain, No Nose discharge, No Nose congestion, No Mouth pain, No Mouth swelling, No Throat pain, No Throat swelling, No Other Cardiovascular: Edema Respiratory: No Cough, No Dry, No Shortness of breath, No SOB with excertion, No Wheezing, No Hemoptysis, No Pleuritic Pain, No Sputum, No Other Gastrointestinal: No Nausea, No Vomiting, No Abdominal Pain, No Diarrhea, No Constipation, No Melena, No Hematochezia, No Other Genitourinary: No Dysuria, No Frequency, No Incontinence, No Hematuria, No Retention, No Other Musculoskeletal: No other, No neck pain, No shoulder pain, No arm pain, No back pain, No hand pain, No leg pain, No foot pain Skin: No Rash, No Lesions, No Jaundice, No Bruising, No Other Objective Vitals Vital Signs Date Time Temp Pulse Resp B/P (MAP) Pulse Ox O2 Delivery O2 Flow Rate FiO2 04/19/25 08:14 Room Air* 0 21 04/19/25 05:25 123/80 04/19/25 05:00 97.5 96 18 100 97.5 Intake/Output Intake and Output 04/19/25 07:00 Intake Total 1915 ml Output Total 2710 ml Balance -795 ml Intake Oral 1915 ml Output Urine Total 2710 ml # Bowel Movements 1 Medications Current Medications Medications Dose Ordered Sig/Jolynn Route Start Time Stop Time Status Last Admin Dose Admin Sodium Chloride 10 ml Q8HR IV 04/16/25 22:00 04/19/25 05:25 10 ML Acetaminophen/ Hydrocodone Bitart 1 tab Q4HP PRN PO 04/16/25 16:30 04/19/25 05:24 1 TAB Ondansetron HCl 4 mg Q4HP PRN IV 04/16/25 16:30 Hold Docusate Sodium 100 mg BIDPRN PRN PO 04/16/25 16:30 Acetaminophen 650 mg Q6HP PRN PO 04/16/25 16:30 04/16/25 23:49 650 MG Diphenhydramine HCl 25 mg Q6HP PRN PO 04/16/25 16:30 Famotidine 40 mg Q12HR PO 04/16/25 22:00 04/18/25 22:54 40 MG Furosemide 40 mg BIDD IV 04/16/25 18:00 04/19/25 05:25 40 MG Prednisone 5 mg DAILY PO 04/17/25 10:00 04/18/25 10:13 5 MG Laboratory Results Laboratory Tests 04/17/25 06:56 Coagulation Test 04/18/25 14:44 Prothrombin Time 12.2 sec (9.3-11.8) H Prothrombin Time INR 1.17 (0.9-1.15) H Activated Partial Thromboplast Time 28.1 SEC (24.5-34.5) Urinalysis Test 04/16/25 21:01 Urine Color Light-yellow (Yellow) Urine Clarity Clear (Clear) Urine pH 5.0 (5.0-9.0) Urine Specific [place] 1.011 (1.001-1.035) Urine Protein Negative (Negative) Urine Ketones Negative (Negative) Urine Blood Negative /uL (Negative) Urine Nitrite Negative (Negative) Urine Bilirubin Negative (Negative) Urine Urobilinogen Normal mg/dL (Negative) Urine Leukocyte Esterase Negative /uL (Negative) Urine RBC 1 /hpf (0 - 3) Urine Microscopic WBC < 1 /HPF (0-3) Urine Squamous Epithelial Cells None seen /hpf (<5) Urine Bacteria None seen /hpf (None Seen) Urine Glucose Normal mg/dL (Normal) Microbiology Microbiology Date/Time Source Procedure Growth Status 04/16/25 23:45 Nose MRSA Screen - Final Complete Labs and/or images reviewed: Labs reviewed by me, Image(s) reviewed by me Assessment/Plan Assessment/Plan Allergic reaction, prednisone Alcoholic liver cirrhosis,: Lasix Fluid overload, Inguinal hernia, outpatient follow up Ascites secondary to cirrhosis. Radiologist felt very minimal ascites by ultrasound, no need for drainage Plan discussed with: Patient My Orders Orders - DARRELL LEW MD Procedure Category Date Status Time * Radiologist Consult CONS 04/18/25 Transmitted 14:35 Ct Ab Pel Wo Con-No CT 04/18/25 Resulted Oral Or Iv 14:35 Date of Service: Apr 19, 2025 Billing Provider: DARRELL LEW MD Common Visit Codes: [id number] INP/OBS CARE(HIGH) DARRELL LEW MD Apr 19, 2025 09:59
--- NOTE | 2025-04-19 10:04 | DVHDS2 ---
Discharge Summary Date of Admission Apr 16, 2025 at 16:18 Date of Discharge: Apr 19, 2025 Admitting Diagnosis Allergic reaction to medications Wounds: None Labs/Diagnostic Data: Laboratory Results Test 04/18/25 14:44 04/17/25 06:56 04/16/25 21:01 04/16/25 15:16 Prothrombin Time 12.2 sec (9.3-11.8) Prothrombin Time INR 1.17 (0.9-1.15) Activated Partial Thromboplast Time 28.1 SEC (24.5-34.5) White Blood Count 16.0 10^3/uL (4.4-10.8) Red Blood Count 4.41 10^6/uL (4.5-5.90) Hemoglobin 13.3 g/dL (13.5-17.5) Hematocrit 39.9 % (41.0-53.0) Mean Corpuscular Volume 90.5 fL (80.0-100.0) Mean Corpuscular Hemoglobin 30.1 pg (28.0-32.0) Mean Corpuscular Hemoglobin Concent 33.3 g/dL (32.0-36.0) Red Cell Distribution Width 15.0 % (11.8-14.3) Platelet Count 133 10^3/uL (140-450) Mean Platelet Volume 9.5 fL (6.9-10.8) Neutrophils (%) (Auto) 81.8 % (37.0-80.0) Lymphocytes (%) (Auto) 7.3 % (10.0-50.0) Monocytes (%) (Auto) 10.4 % (0.0-12.0) Eosinophils (%) (Auto) 0.2 % (0.0-7.0) Basophils (%) (Auto) 0.3 % (0.0-2.0) Neutrophils # (Auto) 13.1 10 ^3/uL (1.6-8.6) Lymphocytes # (Auto) 1.2 10 ^3/uL (0.4-5.4) Monocytes # (Auto) 1.7 10 ^3/uL (0-1.3) Eosinophils # (Auto) 0 10 ^3/uL (0-0.8) Basophils # (Auto) 0.1 10 ^3/uL (0-0.2) Nucleated Red Blood Cells 0.0 % Sodium Level 137 mmol/L (136-145) Potassium Level 4.2 mmol/L (3.5-5.1) Chloride Level 102 mmol/L (98-107) Carbon Dioxide Level 24 mmol/L (20-31) Anion Gap 11 (5-15) Blood Urea Nitrogen 14 mg/dL (9-23) Creatinine 1.06 mg/dL (0.700-1.30) Glomerular Filtration Rate Calc 82 mL/min (>90) BUN/Creatinine Ratio 13.2 (10.0-20.0) Serum Glucose 119 mg/dL (74-106) Calcium Level 9.1 mg/dL (8.7-10.4) Total Bilirubin 1.6 mg/dL (0.2-1.0) Aspartate Amino Transferase (AST) 19 U/L (13-40) Alanine Aminotransferase (ALT) 16 U/L (7-40) Alkaline Phosphatase 110 U/L (46-116) Total Protein 6.9 g/dL (5.7-8.2) Albumin 4.1 g/dL (3.2-4.8) Urine Color Light-yellow (Yellow) Urine Clarity Clear (Clear) Urine pH 5.0 (5.0-9.0) Urine Specific [place] 1.011 (1.001-1.035) Urine Protein Negative (Negative) Urine Ketones Negative (Negative) Urine Blood Negative /uL (Negative) Urine Nitrite Negative (Negative) Urine Bilirubin Negative (Negative) Urine Urobilinogen Normal mg/dL (Negative) Urine Leukocyte Esterase Negative /uL (Negative) Urine RBC 1 /hpf (0 - 3) Urine Microscopic WBC < 1 /HPF (0-3) Urine Squamous Epithelial Cells None seen /hpf (<5) Urine Bacteria None seen /hpf (None Seen) Urine Glucose Normal mg/dL (Normal) Urine Opiates Screen Neg (NEGATIVE) Urine Fentanyl Screen Neg (NEGATIVE) Urine Barbiturates Screen Neg (NEGATIVE) Urine Phencyclidine Screen Neg (NEGATIVE) Urine Amphetamines Screen Neg (NEGATIVE) Urine Benzodiazepines Screen Neg (NEGATIVE) Urine Cocaine Screen Neg (NEGATIVE) Urine Cannabinoids Screen Neg (NEGATIVE) Troponin I High Sensitivity 23 ng/L (</=54) Test 04/16/25 11:57 B-Type Natriuretic Peptide 1302.59 pg/mL (0-100) Other Laboratory Tests 04/17/25 06:56 Brief Hx & Hospital Course: 59-year-old male came in complaining allergic reaction after taking medications. Treated with a prednisone resolved cirrhosis of liver with a arthritis Radiology felt 2 L to drain patient has a inguinal hernia chronic. Discharged home he will follow up with his primary Dr for referral to surgeon regarding inguinal hernia surgery Consults/Reason for consult Radiology Operations or Procedures Abdominal ultrasound Condition at Discharge: Fair Final Diagnosis/Problems List Allergic reaction, prednisone Alcoholic liver cirrhosis,: Lasix Fluid overload, Inguinal hernia, Ascites secondary to cirrhosis. Radiologist felt very minimal ascites by ultrasound, no need for drainage Discharge Disposition: Home Discharge Instruct/Medications Diet: Regular Activity: Light activity Follow Up/Referral: Follow up with your primary Dr for referral to surgeon regarding your inguinal hernia Medications: none Scheduled Furosemide (Lasix), 40 MG PO DAILY Metoprolol Succinate (Metoprolol Succinate Er), 1 TAB PO DAILY Discontinued Medications Cephalexin (Keflex Capsule), 1 CAP PO QID Furosemide (Lasix), 40 MG PO DAILY 39 (Time taken for discharge summary 39 minutes) Discharge Statement: "Patient was advised to return to the ER or call 911 if any headaches, dizziness, shortness of breath, chest pain, abdominal pain, bleeding, fevers, or worsening of medical condition. Patient was counseled about treatment plan, medications, possible side effects, patientverbalized understanding. All questions were answered to the best of my ability. This discharge took greater then 30 minutes in planning, reviewing documentation, counseling the patient, and discussing with other team members." ASSESSMENT ASSESSMENT Hospital Course Resolved Assessment Allergic reaction, prednisone Alcoholic liver cirrhosis,: Lasix Fluid overload, Inguinal hernia, Ascites secondary to cirrhosis. Radiologist felt very minimal ascites by ultrasound, no need for drainage Date of Service: Apr 19, 2025 Billing Provider: DARRELL LEW MD Common Visit Codes: [id number] DISCH DAY >30min DARRELL LEW MD Apr 19, 2025 10:04
== END 2025-04-19 12:00 | disposition home or self-care (01) | DRG 425 ==
LOC: ER 11:01 → OVERFLOW 16:18 → EAST 04-17 18:00
PROVIDERS: ADMIT Family Medicine; ATTEND Family Medicine
DX: E87.70 Fluid overload, unspecified (principal); K70.31 Alcoholic cirrhosis of liver with ascites; I11.0 Hypertensive heart disease with heart failure; I50.9 Heart failure, unspecified; K40.90 Unilateral inguinal hernia, without obstruction or gangrene, not specified as recurrent; T38.0X5A Adverse effect of glucocorticoids and synthetic analogues, initial encounter; Z88.1 Allergy status to other antibiotic agents; Y92.89 Other specified places as the place of occurrence of the external cause
CPT/HCPCS: 36415; 71045; 74176; 76705; 80048; 80053; 80307; 81001; 83880; 84484; 85025; 85610; 85730; 87081; 93005; 96374; 96375; 99291; G0378

== ENCOUNTER 2025-04-28 16:05 | Emergency (ER) | payer MEDICAID ==
[~2025-04-28] VITALS: Ht 170.2 cm; Wt 86.5 kg
[~2025-04-28 16:05] MED LIST changes: -CEPH250C PO
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
[2025-04-28 19:27] LABS: Hematocrit 40.6 % (41.0-53.0); Hemoglobin 13.1 g/dL (13.5-17.5); Mean Corpuscular Hemoglobin 29.2 pg (28.0-32.0); Mean Corpuscular Volume 90.8 fL (80.0-100.0); Nucleated Red Blood Cells % 0.0 %
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
[2025-04-28 19:33] LABS: Potassium 4.6 mmol/L (3.5-5.1)
[2025-04-28 19:34] LABS: Anion Gap 8 (5-15); Carbon Dioxide 27 mmol/L (20-31)
[2025-04-28 19:35] LABS: Calcium 9.3 mg/dL (8.7-10.4)
[2025-04-28 19:39] LABS: BUN/Creatinine Ratio 9.9 (10.0-20.0); Blood Urea Nitrogen 14 mg/dL (9-23); Glucose 78 mg/dL (74-106)
[2025-04-28 19:41] LABS: Chloride 111 mmol/L (98-107); Sodium 146 mmol/L (136-145)
[2025-04-28 20:51] VITALS: BP 135/105; PULSE 74; RESP 16; TEMP 98.2; O2SAT 98
== END 2025-04-28 21:07 | disposition home or self-care (01) ==
LOC: ER 16:05
DX: I13.0 Hypertensive heart and chronic kidney disease with heart failure and stage 1 through stage 4 chronic kidney disease, or unspecified chronic kidney disease (principal); N18.9 Chronic kidney disease, unspecified; I50.9 Heart failure, unspecified; F10.90 Alcohol use, unspecified, uncomplicated; F12.90 Cannabis use, unspecified, uncomplicated; F19.90 Other psychoactive substance use, unspecified, uncomplicated; Z79.899 Other long term (current) drug therapy; Z87.440 Personal history of urinary (tract) infections; Z88.1 Allergy status to other antibiotic agents; Z71.1 Person with feared health complaint in whom no diagnosis is made
CPT/HCPCS: 36415; 71045; 80048; 84484; 85025